=== PATIENT | male | born 1955 | race Caucasian/White ===

== ENCOUNTER 2024-11-07 07:13 | Outpatient (OUT) | payer OTHER, MEDICARE, SELFPAY ==
--- OUTSIDE RECORDS SUMMARY | 2024-11-07 07:21 | XMS_ITS | Clinical Summary ---
Author Organization [facility] Address [address] [place], [place] [id number] Care Team Providers Care Rope Rider Name Role Phone Unavailable Primary Care Provider Unavailabl e Allergies Active Allergy Reactions Criticality Noted Date Comments Penicillins Hives 03/15/2015 Medications buPROPion XL (WELLBUTRIN XL) 150 mg 24 hr tablet 02/11/2015 Active levothyroxine (SYNTHROID) 75 mcg tablet 02/25/2015 Active NITROSTAT 0.4 mg SL tablet 12/12/2014 Active ranitidine (ZANTAC) 150 mg tablet 02/11/2015 Active buPROPion XL (WELLBUTRIN XL) 300 mg 24 hr tablet 03/13/2015 Active Active Problems Problem Noted Date Diagnosed Date PVC's (premature ventricular contractions) 03/15 Family History Medical History Relation Comments COPD Father Diabetes Father HTN [Other] Father Heart Mother ID in her 70 , I CD Stroke Mother Diabetes Sister Diabetes Son Relation Status Comments Father Mother Sister Son Social History Tobacco Use Types Packs/Day Years Used Date Smoking Tobacco: Former Cigars Q uit: 06/01/2004 Alcohol Use Standard Drinks/Week Comments No 0 (1 standard drink = 0.6 oz pur e alcohol) Sex and Gender Information Value Date Recorded Sex Assigned at Not on file Legal Sex Male 8:03 AM EDT Gender Identity Not on file Sexual Orientation Not on file 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 Not on file Not on file Not on file [employer] Not on file Not on file Not on file Last Filed Vital Signs Vital Sign Reading Time Taken Comments Blood Pressure 140/80 03/15/2015 9:14 AM EDT Pulse 60 03/15/2015 9:14 AM EDT Temperature 36.2 C (97.1 F) 03/15/2015 9:14 AM EDT Respiratory Rate 16 03/15/2015 9:14 AM EDT Oxygen Saturation 95% 03/15/2015 9:14 AM EDT Inhaled Oxygen Concentration - - Weight 72.1 kg (159 lb) 03/15/2015 9:14 AM EDT Height 165.1 cm (5' 5 ) 03/15/2015 9:14 AM EDT Body Mass Index 26.46 03/15/2015 9:14 AM EDT Plan of Treatment Health Maintenance Due Date Last Done Comments Abdominal Aortic Aneurysm Screening 1957 Anxiety Screening 1975 Depression Screening 1975 Hepatitis C Screening 1975 DTaP,Tdap,Td Vaccine (1 - Tdap) [address] Colonography 2002 Cologuard (FIT-DNA) 2002 Colonoscopy 2002 Colorectal Cancer Screening 2002 Diabetes Screening 2002 Fecal Occult Blood 2002 Prostate Cancer Screening Discussion 2002 Sigmoidoscopy 2002 Pneumococcal Vaccine: 50+ (1 of 1 - PCV) 2007 Shingrix Vaccine (1 of 2) 2007 Covid-19 Vaccine (1 - season) 2024 Advance Directive Discussion 06/01/2024 Influenza Vaccine (Season Ended) 2025 RSV Vaccine (1 - 1-dose 75+ series) 2032
--- OUTSIDE RECORDS SUMMARY | 2024-11-07 07:21 | XMS_ITS | Clinical Summary ---
Author Organization [facility] Address [address] [place] [address] Phone Care Team Providers Care Hall Manager Name Role Phone Generic Provider, No Assigned Pcp MD Primary Car e Provider Unavailable Allergies No known active allergies Medications nitroglycerin (Nitrostat) 0.[address] 0.4 mg under the tongue every 5 minutes if needed. 09/21/2023 Active levothyroxine (Synthroid) 75 mcg tablet Take 75 mcg by mouth early in the morning.. 03/17/2024 Active buPROPion XL (Wellbutrin XL) 300 mg 24 hr tablet Take 1 tablet by mouth once daily. 03/23/2024 Active atorvastatin (Lipitor) 20 mg tablet Take 1 tablet by mouth once daily at bedtime. 03/23/2024 Active amLODIPine (Norvasc) 10 mg tablet Take 1 tablet by mouth once daily. 03/10/2024 Active diclofenac sodium (Voltaren) 1 % gel Apply topically. 09/21/2023 Active ibuprofen (IBU) 800 mg tablet Take 800 mg by mouth. 03/28/2024 Active propranolol LA (Inderal LA) 120 mg 24 hr capsule Take 120 mg by mouth once daily. Do not crush, chew, or split. Active ZOLMitriptan (Zomig) 5 mg tablet Take 5 mg by mouth 1 time if needed for migraine. May repeat in 2 hours if unresolved. Do not exceed 10 mg in 24 hours. Active Immunizations Immunization Administration Dates Next Due Tdap vaccine, age 7 year and older (BOOSTRIX, AD ACEL) 04/24/2024 Social History Tobacco Use Types Packs/Day Years Used Date Smoking Tobacco: Never Assessed Sex and Gender Information Value Date Recorded Sex Assigned at Not on file Legal Sex Male 2:32 AM EST Gender Identity Not on file Sexual Orientation Not on file Last Filed Vital Signs Vital Sign Reading Time Taken Comments Blood Pressure 152/81 04/24/2024 4:49 PM EST Pulse 42 04/24/2024 4:49 PM EST Temperature 37.1 C (98.7 F) 04/24/2024 4:49 PM EST Respiratory Rate 14 04/24/2024 4:49 PM EST Oxygen Saturation 98% 04/24/2024 4:49 PM EST Inhaled Oxygen Concentration - - Weight 77.1 kg (170 lb) 04/24/2024 4:49 PM EST Height 165.1 cm (5' 5 ) 04/24/2024 4:49 PM EST Body Mass Index 28.29 04/24/2024 4:49 PM EST Plan of Treatment Health Maintenance Due Date Last Done Comments CT Colonography 1957 Colonoscopy 1957 Colorectal Cancer Screening 1957 FIT-DNA (Cologuard) 1957 FIT 1957 Lipid Panel 1957 Medicare Annual Wellness Visit (AWV) 1957 Sigmoidoscopy 1957 TSH Level 1957 MMR Vaccines (1 of 1 - Standard series) 1958 Diabetes Screening 1975 Hepatitis C Screening 1975 RSV High Risk: (Elderly (60+) or Population) (1 - Risk 60-74 years 1-dose series) 2017 COVID-19 Vaccine ( season) 2024 03/23/2024, 03/18/2023, 03/05/2022, Additional history exists DTaP/Tdap/Td Vaccines (4 - Td or Tdap) 04/24/2034 04/24/2024, 09/19/2022, 05/06/2015 Pneumococcal Vaccine Completed 09/23/2021 Zoster Vaccines Completed 03/24/2022, 09/23/2021 Influenza Vaccine Completed 03/23/2024, , 03/24/2022 HIB Vaccines Aged Out No longer eligi ble based on patient's age to complete this topic HPV Vaccines Aged Out No longer eligi ble based on patient's age to complete this topic Hepatitis A Vaccines Aged Out No long er eligible based on patient's age to complete this topic Hepatitis B Vaccines Aged Out No long er eligible based on patient's age to complete this topic IPV Vaccines Aged Out No longer eligi ble based on patient's age to complete this topic Meningococcal Vaccine Aged Out No bubba jair eligible based on patient's age to complete this topic Rotavirus Vaccines Aged Out No longer eligible based on patient's age to complete this topic Insurance MEDICARE [facility] B [facility] Care Teams Hall Manager Relationship Specialty Start Date End Date Generic Provider, No Assigned Pcp, [place] [address] PCP - General Business Rules Developer 04/24/24
--- OUTSIDE RECORDS SUMMARY | 2024-11-07 07:21 | XMS_ITS | Clinical Summary ---
Author Organization [facility] Address [address] [place] [address] Care Team Providers Care Brick Molder Hand Name Role Phone Unavailable Primary Care Provider Unavailabl e Social History Tobacco Use Types Packs/Day Years Used Date Smoking Tobacco: Never Assessed Sex and Gender Information Value Date Recorded Sex Assigned at Not on file Legal Sex Male 11:55 PM EST Gender Identity Not on file Sexual Orientation Not on file Plan of Treatment Not on file Insurance [place] BCBS
--- OUTSIDE RECORDS SUMMARY | 2024-11-07 07:21 | XMS_ITS | Encounter Summary ---
Author Organization [facility] Address [address] [place] [address] Care Team Providers Care Hematology Oncology Consultant Name Role Phone Eileen Dawn INTERVENTIONAL TECHNOLOGIST Primary Care Provider + [phone] Reason for Visit * Reason Onset Date Comments Med Refill 11/01/2024 Encounter Details Date Type Department Care Team (Late st Contact Info) Description 11/01/2024 Refill [facility] [address] [place] [address] Lou Lyons MA Palpitations Social History Tobacco Use Types Packs/Day Years Used Date Smoking Tobacco: Former Cigarettes Smokeless Tobacco: Never Alcohol Use Standard Drinks/Week Comments Not Currently 0 (1 standard drink = 0.6 oz pur e alcohol) Sex and Gender Information Value Date Recorded Sex Assigned at Not on file Gender Identity Not on file Sexual Orientation Not on file documented as of this encounter Plan of Treatment Upcoming Encounters Date Type Department Care Team (Late st Contact Info) Description 12/06/2024 11:45 AM EDT Office Visit [facility] [address] [place] [address] Jarrett Frederick MD [address] [place] [phone] documented as of this encounter Visit Diagnoses Diagnosis Palpitations documented in this encounter Care Teams Hematology Oncology Consultant Relationship Specialty Start Date End Date Eileen Dawn NP [address] [place] [address] PCP - General Family Medicine 10/07/24 documented as of this encounter
--- OUTSIDE RECORDS SUMMARY | 2024-11-07 07:21 | XMS_ITS | Clinical Summary ---
Author Organization [facility] Address [address] [place] [address] Care Team Providers Care Electronic Resources Librarian Name Role Phone Lila Dawnca Ondina DEVINE Primary Care Provider + [phone] Allergies Active Allergy Reactions Criticality Noted Date Comments Penicillins Unknown 10/07/2024 Medications Medication Sig Dispensed Refills Start Date End Date Status amLODIPine (Norvasc) 5 mg tablet Take 5 mg by mouth in the morning. Active atorvastatin (Lipitor) 20 mg tablet Take 20 mg by mouth in the morning. Active buPROPion XL (Wellbutrin XL) 300 mg 24 hr tablet Take 300 mg by mouth in the morning. Do not crush, chew, or split. Active diclofenac (Voltaren) 1 % topical gel Apply topically Twice daily at 6am and 6pm. Active levothyroxine (Synthroid, Levoxyl) 75 mcg tablet Take 75 mcg by mouth before breakfast. Active nitroglycerin (Nitrostat) 0.[address] 0.4 mg under the tongue every 5 (five) minutes if needed for chest pain. Active ibuprofen 800 mg tablet Take 800 mg by mouth if needed in the morning, at noon, and at bedtime for mild pain (1-3 pain score). Active omeprazole OTC (PriLOSEC OTC) 20 mg EC tablet Take 20 mg by mouth before breakfast. Do not crush, chew, or split. Active metoprolol succinate XL (Toprol-XL) 50 mg 24 hr tabletIndications :Palpitations Take 1 tablet (50 mg) by mouth in the morning. Do not crush or chew. 90 tablet 3 11/01/2024 11/01/2025 Active metoprolol succinate XL (Toprol-XL) 50 mg 24 hr tablet Take 50 mg by mouth in the morning. Do not crush or chew. 11/01/2024 Discontinued (Reorder) Active Problems Problem Noted Date Diagnosed Date PVC (premature ventricular contraction) 10/10/19 25 Abnormal EKG 10/09/2024 Hypomagnesemia 10/04/2024 GERD (gastroesophageal reflux disease) Hypothyroidism 10/04/2024 Essential hypertension 10/04/2024 Dyslipidemia 10/04/2024 Anxiety 10/04/2024 Bradycardia 10/04/2024 Resolved Problems Problem Noted Date Diagnosed Date Resolved Date CAD (coronary artery disease) 10/04/2024 10/09/2024 Encounters Date Type Department Care Team Description 11/01/2024 Refill [facility] [address] [place] [address] Lou Lyons MA Palpitations 10/07/2024 2:00 PM EDT Office Visit [facility] [address] [place] [address] Melania Avalos MD Essential hypertension (Primary Dx); Bradycardia; Abnormal EKG; PVC (premature ventricular contraction); Dyslipidemia; Acquired hypothyroidism from Last 3 Months Family History Medical History Relation Name Comments Diabetes Father Heart attack Mother Relation Name Status Comments Brother Alive Father Mother Sister Alive Social History Tobacco Use Types Packs/Day Years Used Date Smoking Tobacco: Former Cigarettes Smokeless Tobacco: Never Tobacco Cessation:Counseling Given: Not Answered Alcohol Use Standard Drinks/Week Comments Not Currently 0 (1 standard drink = 0.6 oz pur e alcohol) Sex and Gender Information Value Date Recorded Sex Assigned at Not on file Gender Identity Not on file Sexual Orientation Not on file Last Filed Vital Signs Vital Sign Reading Time Taken Comments Blood Pressure 128/72 10/07/2024 2:08 PM EDT Pulse 45 10/07/2024 2:08 PM EDT Temperature - - Respiratory Rate - - Oxygen Saturation 96% 10/07/2024 2:08 PM EDT Inhaled Oxygen Concentration - - Weight 73 kg (161 lb) 10/07/2024 2:08 PM EDT Height 165.1 cm (5' 5 ) 10/07/2024 2:08 PM EDT Body Mass Index 26.79 10/07/2024 2:08 PM EDT Plan of Treatment Upcoming Encounters Date Type Department Care Team (Late st Contact Info) Description 12/06/2024 11:45 AM EDT Office Visit [facility] [address] [place] [address] Jarrett Frederick MD [address] [place] [address] Health Maintenance Due Date Last Done Comments CT Colonography 1957 Colonoscopy 1957 Colorectal Cancer Screening 1957 FIT-DNA 1957 FIT 1957 FOBT 1957 Medicare Annual Wellness (AWV) 1957 Sigmoidoscopy 1957 Depression Screening 1969 Zoster Vaccines (1 of 2) 2007 Fall Risk Screening 2022 Pneumococcal Vaccine: 65+ Years (1 of 1 - PCV) 2022 COVID-19 Vaccine ( season) 2024 03/23/2024, 03/18/2023, 03/05/2022, Additional history exists Adult Tetanus 04/24/2034 04/24/2024 Influenza Vaccine Completed 03/23/2024, 03/18/2023 HIB Vaccines Aged Out No longer eligi ble based on patient's age to complete this topic HPV Vaccines Aged Out No longer eligi ble based on patient's age to complete this topic IPV Vaccines Aged Out No longer eligi ble based on patient's age to complete this topic Meningococcal B Vaccine Aged Out No l onger eligible based on patient's age to complete this topic Meningococcal Vaccine Aged Out No bubba jair eligible based on patient's age to complete this topic Rotavirus Vaccines Aged Out No longer eligible based on patient's age to complete this topic Procedures Procedure Name Priority Date/Time Associated Diagnosis Comments ECG 12-LEAD Routine 10/07/2024 6:02 PM EDT PVC (premature ventricular contraction) ECG 12 LEAD UNIT PERFORMED Routine 10/07/2024 2:21 PM EDT Bradycardia from Last 3 Months Results * ECG 12 lead (10/07/2024 6:02 PM EDT) Narrative Melania Avalos MD - 10/07/2024 6:02 PM EDT normal sinus rhythm with frequent PVCs appear to be probably interpolated PVC, heart rate 66 bpm. Melania Avalos MD ECG ORDERABLES * ECG 12 lead unit performed (10/07/2024 2:21 PM EDT) Melania Avalos MD ECG ORDERABLES from Last 3 Months Care Teams Electronic Resources Librarian Relationship Specialty Start Date End Date Eileen Dawn NP [address] [place] [address] PCP - General Family Medicine 10/07/24
--- OUTSIDE RECORDS SUMMARY | 2024-11-07 07:21 | XMS_ITS | Referral Summary ---
Author Organization [facility] Address [address] [place] [address] Care Team Providers Care Consulting Systems Engineer Name Role Phone LópezEileen Ondina GIS ANALYST Primary Care Provider + [phone] Encounters Date Type Department Care Team Description 11/01/[address] [address] Lou Lyons MA Palpitations 10/07/2024 2:00 PM EDT Office Visit [facility] [address] [place] [address] Melania Avalos MD Essential hypertension (Primary Dx); Bradycardia; Abnormal EKG; PVC (premature ventricular contraction); Dyslipidemia; Acquired hypothyroidism from Last 3 Months Allergies Active Allergy Reactions Criticality Noted Date [...] Date CAD (coronary artery disease) 10/04/2024 10/09/2024 Social History Tobacco Use Types Packs/Day Years [...] Description 12/06/2024 11:45 AM EDT Office Visit [facility] at [facility] [address] [place] [address] Jarrett Frederick MD [address] [place] [phone] Procedures Procedure Name Priority Date/Time Associated Diagnosis [...] ORDERABLES from Last 3 Months Care Teams Consulting Systems Engineer Relationship Specialty Start Date End Date Eileen Dawn NP [address] [place] [address] PCP - General Family Medicine 10/07/24
--- NOTE | 2024-11-07 07:30 | CA_ITS ---
Patient Name: BRYANT CARO MR#: [id number] : 1955 Exam Date: 11/07/2024 Ordering Doctor: DR. ANGUS ERIC M.D. ECHOCARDIOGRAM REPORT PROCEDURE: CA ECHO DOPPLER COMPLETE INDICATIONS: Bradycardia, abnormal ECG, PVC, hypertension COMPARISON: None. DESCRIPTION: COMPLETE ECHOCARDIOGRAM Real-time transthoracic echocardiography with 2D, M-mode, spectral and color flow Doppler performed. QUALITY: Technical quality was good. LEFT VENTRICLE: Normal chamber size. Normal left ventricular wall thickness. LV EF: Global left ventricular systolic function is difficult to assess but appears lower normal limits; visually estimated ejection fraction is 50%. No significant wall motion abnormalities. DIASTOLIC: Unable to assess diastolic function. ATRIAL SEPTUM: Visually appears intact. LEFT ATRIUM: Mildly enlarged. RIGHT ATRIUM: Moderately enlarged. RIGHT VENTRICLE: Mildly enlarged. Normal right ventricular systolic function. TRICUSPID VALVE: Normal mobility and thickness. No stenosis with mild to moderate regurgitation. Doppler studies reveal mildly (35-45) elevated right sided pressures. RVSP 36 mmHg MITRAL VALVE: Normal mobility and thickness. No evidence of mitral valve stenosis. Mild mitral regurgitation. AORTIC VALVE: Normal trileaflet appearance. No visible sclerosis. Normal leaflet mobility. No evidence of aortic valve stenosis. No aortic regurgitation. AORTIC ROOT: Normal diameter and appearance. PULMONIC VALVE: Normal thickness and mobility. No stenosis. Trivial regurgitation. PERICARDIUM: No evidence of pericardial effusion. IVC: Collapses with inspiration. IVC is normal in size. CONCLUSION: 1. Global left ventricular systolic function is difficult to assess but appears lower normal limits; visually estimated ejection fraction is 50% 2. Right ventricle is enlarged with normal systolic function 3. Biatrial enlargement 4. Mild to moderate tricuspid regurgitation 5. Mildly elevated right ventricular systolic pressure; RVSP 36 mmHg 6. Mild mitral regurgitation Adult Echocardiography Procedure Report Left Ventricle LVEDD (3.7 - 5.6 cm): 5.26 cm LVESD (2.2 - 4.0 cm): 3.83 cm LVIVS thickness (0.6 - 1.2 cm): 0.88 cm LVPW thickness (0.5 - 1.0 cm): 0.70 cm e': 0.08 m/s E - e': 6.82 LVOT Max Gradient: 2.21 mm[Hg] LVOT Area (cm2): 0.74 m/s Peak Velocity (LVOT): 0.74 m/s Mean Velocity (LVOT): 0.49 m/s LVOT Diameter 2.21 cm Left Atrium LA Volume Index (2D A2C): 39.24 ml/m2 Left Atrium Systolic Dimension: 4.03 cm Mitral Valve MV E to A Ratio: 1 Mitral Valve A-Wave Peak Velocity: 0.52 m/s Mitral Valve E-Wave Peak Velocity: 0.52 m/s Right Ventricle Aorta AO Root Diam: 3.63 cm Aortic Valve AoV Area (Peak Elvis): 2.77 cm2, 2.77 cm2 AoV Area (VTI): 2.86 cm2, 2.86 cm2 Peak Velocity(Antegrade Flow): 1.03 m/s Peak Gradient(Antegrade Flow): 4.26 mm[Hg] Mean Velocity(Antegrade Flow): 0.67 m/s Mean Gradient(Antegrade Flow): 2.10 mm[Hg] Velocity Time Integral: 22.74 cm Tricuspid Valve Peak Velocity (Regurgitant Flow): 2.84 m/s, 2.42 m/s Pulmonic Valve Peak Gradient: 3.51 mm[Hg], 4.20 mm[Hg], 3.63 mm[Hg] Right Atrium Right Atrium Systolic Pressure: 63.47 ml, 63.47 ml Dictated by: Aisha Liu M.D. on 11/07/2024 at 17:22 Approved by: Aisha Liu M.D. on 11/07/2024 at 17:27
== END 2024-11-07 07:14 | disposition home or self-care (01) ==
LOC: CARD 07:19
PROVIDERS: Visit Provider Internal Medicine Cardiovascular Disease
DX: R00.1 Bradycardia, unspecified (principal); R94.31 Abnormal electrocardiogram [ECG] [EKG]; I49.3 Ventricular premature depolarization
CPT/HCPCS: 93306

== ENCOUNTER 2025-01-11 07:52 | Outpatient (OUT) | payer OTHER, MEDICARE, SELFPAY ==
--- OUTSIDE RECORDS SUMMARY | 2024-03-23 04:00 | XMS_ITS | Encounter Summary ---
Author Name [facility] [place] Organization [facility] [place] Address [address] [place] [id number] Care Team Providers Care Broke Worker Name Role Phone HORTENCIA BLANCO Primary Care Provider Unavailabl e Insurance Providers: All historical and current Section Date Range: From patient's date of to the date document was created. This section includes the names of all active insurance providers for the patient. Insurance Provider Type of Coverage Plan Name Start of Policy Coverage End of Policy Coverage Group Number Member ID Insurance Provider's Telephone Number Policy Turner's Name Patient's Relationship to Policy Turner MEDICARE (WNR) MEDICARE (M) PART A Jul 02, 2022 PART A [id number] XANDER CARO JR IN PATIENT MEDICARE (WNR) MEDICARE (M) PART B Jul 02, 2022 PART B [id number] XANDER CARO JR IN PATIENT Selected Encounter This section includes the information on record at [place] for the Encounter. Date/Time Encounter Type Encounter Description Reason Provider Source Mar 23, 2024 08:00 AM OFFICE O/P EST MOD 30 MIN PRIMARY CARE/MEDICINE ICD-10-CM E83.42 Hypomagnesemia SWATHI BLANCO E Encounter Template Text not used by [place] Assessments - Encounter Diagnoses This section includes the primary and secondary diagnoses documented for the Encounter. Date/Time Primary/Secondary Diagnosis Diagnosis Name Provider Source Mar 23, 2024 08:34 AM PRIMARY Hypomagnesemia SWATHI BLANCO Mar 23, 2024 08:34 AM SECONDARY Abnormal electrocardiogram [ECG] [EKG] SWATHI BLANCO Mar 23, 2024 08:34 AM SECONDARY [place] heart disease [place] coronary artery w/o ang pctrs SWATHI BLANCO [facility] Mar 23, 2024 08:34 AM SECONDARY Encounter for immunization MAICO LOUIE [facility] Mar 23, 2024 08:34 AM SECONDARY Essential (primary) hypertension SWATHI BLANCO [facility] Mar 23, 2024 08:34 AM SECONDARY Hyperlipidemia, unspecified STEVEN BLANCOZunilda Ondina BOWSER [facility] Mar 23, 2024 08:34 AM SECONDARY Hypothyroidism, unspecified STEVEN BLANCOZunilda Ondina [facility] Plan of Treatment: Future Appointments (+ 6 months) and Future Tests (+/- 45 days) The Plan of Treatment section includes future care activities for the [facility] [place] [facility] This section includes future appointments and future orders which are active, pending or scheduled. Future Appointments This section includes appointments that were scheduled to occur 6 months from the date of the Encounter, up to a maximum of 20 appointments. The data comes from all [facility] facilities. Appointment Date/Time Appointment Type Appointme nt Facility Name Mar 31, 2024 08:00 AM AMBULATORY - NONE [facility] May 18, 2024 08:30 AM AMBULATORY - NONE [facility] May 18, 2024 09:15 AM AMBULATORY - NONE [facility] Sep 05, 2024 09:45 AM AMBULATORY - NONE [facility] Sep 12, 2024 08:00 AM AMBULATORY - NONE [facility] Active, Pending, and Scheduled Orders This section includes a listing of several types of active, pending, and scheduled orders, including clinic medications orders, diagnostic test orders, procedure orders and consult orders; where the start date of the order is 45 days before the date of the Encounter or 45 days after the date of theEncounter. The data comes from all [facility]. Test Date/Time Test Type Test Details Facility Name Mar 22, 2024 12:00 AM Laboratory - Chemi nu Order URINALYSIS URINE SP [facility] Lab Results: +/- 30 days of the encounter This section includes the Chemistry and Hematology Lab [facility] with [facility]. Radiology Reports and Pathology Reports are provided separately, in subsequent sections. Lab Results This section contains the Chemistry/Hematology Results that were resulted 30 days before or 30 daysafter the date of the Encounter. Date/Time Source Result Type Result - Unit Interpretation Reference Range Specimen Type Comment Mar 16, 2024 07:43 AM [facility] LIPID PROFILE PLASMA Specimen Type: PLASMA Comment: DLDLREF RANGE: NEAR OR ABOVE OPTIMAL: 100-129 mg/dL BORDERLINE DLDLHIGH: 130-159 mg/dL HIGH: 160-189 mg/dL VERY HIGH: >=190 TRIG REF RANGE: BORDERLINE HIGH: 150-199 mg/dL HIGH: 200-499 mg/dL TRIG VERY HIGH: >=500 mg/dL CREA eGFR was calculated using the CKD-EPI 2020 equation. CHOL REF RANGE: BORDERLINE HIGH: 200-239 mg/dL HIGH: >=240 mg/dL Ordering Provider: HORTENCIA BLANCO Report Released Date/Time: Sep 21, 2023 01:23 PM Reporting Lab: [address] [phone] Performing Lab: [address] [address] CHOLESTEROL 115 mg/dL <199 LDL CHOLESTEROL 73 mg/dL <99 HDL CHOLESTEROL 38 mg/dL L >60 TRIGLYCERIDE 48 mg/dL <149 Mar 16, 2024 07:43 AM [facility] COMPREHENSIVE METABOLIC PANEL PLASMA S pecimen Type: PLASMA Comment: DLDLREF RANGE: NEAR OR ABOVE OPTIMAL: 100-129 mg/dL BORDERLINE DLDLHIGH: 130-159 mg/dL HIGH: 160-189 mg/dL VERY HIGH: >=190 TRIG REF RANGE: BORDERLINE HIGH: 150-199 mg/dL HIGH: 200-499 mg/dL TRIG VERY HIGH: >=500 mg/dL CREA eGFR was calculated using the CKD-EPI 2020 equation. CHOL REF RANGE: BORDERLINE HIGH: 200-239 mg/dL HIGH: >=240 mg/dL Ordering Provider: HORTENCIA BLANCO Report Released Date/Time: Sep 21, 2023 01:23 PM Reporting Lab: [address] [phone] Performing Lab: [address] [phone] ALBUMIN 4.1 g/dL 3.2-4.6 ALKALINE PHOSPHATASE 73 U/L 40-150 ALT/SGPT 47 U/L <55 AST/SGOT 27 U/L 5-34 BUN 17 mg/dL 8.4-25.7 CALCIUM 8.9 mg/dL 8.8-10.0 CREATININE 1.2 mg/dL 0.72-1.25 CO2 23 mmol/L 23-31 GLUCOSE 117 mg/dL H 82-115 PROTEIN, TOTAL 6.3 g/dL L 6.4-8.3 SODIUM 138 mmol/L 136-145 CHLORIDE 104 mmol/L 98-107 BILIRUBIN, TOTAL 0.7 mg/dL 0.2-1.2 POTASSIUM 4.7 mmol/L 3.5-5.1 ANION GAP 15.7 mmol/L 10-20 EGFR (CALCULATED) 67.0 mL/min Mar 16, 2024 07:43 AM [facility] HEMOGLOBIN A1C BLOOD Specimen Type: B LOOD Comment: Values obtained from A1C measurements can vary. For typical A1C assays, a reported value of 7.0 could actually be between 6.72 and 7.28 if measured by a reference method. A reported value of 9.0 could actually be between 8.73 and 9.27. Ref: http://www.ngsp.org/CAPdata.asp Ordering Provider: HORTENCIA BLANCO Report Released Date/Time: Sep 21, 2023 01:23 PM Reporting Lab: [address] [phone] Performing Lab: [address] [phone] HEMOGLOBIN A1C 6.1 H 3.6-5.7 Mar 16, 2024 07:43 AM [facility] PROSTATE SPECIFIC ANTIGEN SERUM Speci men Type: SERUM No comment entered. Ordering Provider: HORTENCIA BLANCO Report Released Date/Time: Sep 21, 2023 01:23 PM Reporting Lab: [address] [phone] Performing Lab: [place] [phone] PROSTATE SPECIFIC ANTIGEN 1.35 ng/mL <4. 00 Mar 16, 2024 07:43 AM [facility] CBC BLOOD Specimen Type: BLOOD No comment entered. Ordering Provider: HORTENCIA BLACNO Report Released Date/Time: Sep 21, 2023 01:23 PM Reporting Lab: [address] [address] Performing Lab: [address] [phone] WBC COUNT 6.8 10*3/uL 3.6-11.0 RBC COUNT 5.15 10*6/uL 4.47-5.83 HGB 15.7 g/dL 13.6-17.4 HCT 47.5 40.0-51.0 MCV 92.1 fL 80.0-96.0 MCH 30.5 pg 27.0-31.0 MCHC 33.1 g/dL 31.5-36.5 PLT 246 10*3/uL 150-400 LYMPHS % 21.3 21.0-51.0 MONOCYTES % 11.3 H 4.0-8.0 NUCLEATED RBC/100WBC 0.1 /100{WBCs} RDW 13.7 11.2-15.8 NEUTROPHIL % 63.7 54.0-78.0 EOSINOPHIL % 2.9 0.0-3.0 BASOPHIL % 0.8 0.0-3.0 ABSOLUTE LYMPHOCYTE COUNT 1.5 10*3/uL 0. 8-5.0 ABSOLUTE NEUTROPHIL COUNT 4.3 10*3/uL 1. 9-8.6 ABSOLUTE BASOPHIL COUNT 0.1 10*3/uL 0.0- 0.3 ABSOLUTE MONOCYTE COUNT 0.8 10*3/uL 0.1- 0.9 ABSOLUTE EOSINOPHIL COUNT 0.2 10*3/uL 0. 0-0.3 MPV 8.6 fL 7.4-11.4 Mar 16, 2024 07:43 AM [facility] FREE T4 PLASMA Specimen Type: PLASMA Comment: DLDLREF RANGE: NEAR OR ABOVE OPTIMAL: 100-129 mg/dL BORDERLINE DLDLHIGH: 130-159 mg/dL HIGH: 160-189 mg/dL VERY HIGH: >=190 TRIG REF RANGE: BORDERLINE HIGH: 150-199 mg/dL HIGH: 200-499 mg/dL TRIG VERY HIGH: >=500 mg/dL CREA eGFR was calculated using the CKD-EPI 2020 equation. CHOL REF RANGE: BORDERLINE HIGH: 200-239 mg/dL HIGH: >=240 mg/dL Ordering Provider: HORTENCIA BLANCO Report Released Date/Time: Sep 21, 2023 01:23 PM Reporting Lab: [address] [address] Performing Lab: [address] [address] FREE T4 1.15 ng/dL 0.7-1.48 Mar 16, 2024 07:43 AM [facility] TSH PLASMA Specimen Type: PLASMA Comment: DLDLREF RANGE: NEAR OR ABOVE OPTIMAL: 100-129 mg/dL BORDERLINE DLDLHIGH: 130-159 mg/dL HIGH: 160-189 mg/dL VERY HIGH: >=190 TRIG REF RANGE: BORDERLINE HIGH: 150-199 mg/dL HIGH: 200-499 mg/dL TRIG VERY HIGH: >=500 mg/dL CREA eGFR was calculated using the CKD-EPI 2020 equation. CHOL REF RANGE: BORDERLINE HIGH: 200-239 mg/dL HIGH: >=240 mg/dL Ordering Provider: HORTENCIA BLANCO Report Released Date/Time: Sep 21, 2023 01:23 PM Reporting Lab: [address] [phone] Performing Lab: [address] [phone] TSH 0.888 u[IU]/mL 0.360-4.500 Immunizations: All administered on the encounter date This section contains immunizations associated to the Encounter. Immunization Series Date Issued Administered By Site Reaction Lot Number CVX Code Drug Timing Adjuster Comment(s) Source COVID-19 (PFIZER), MRNA, LNP-S, PF, ENE-SUCROSE, 30 MCG/0.3 ML (AGES 12+ YEARS) Mar 23, 2024 MAICO LOUIE LEFT DELTO ID [id number] [employer] ADMINISTERE D AT [facility] INFLUENZA, HIGH-DOSE, TRIVALENT, PF Mar 23, 2024 MAICO LOUIE RIGHT DELTO ID [id number] 135 [employer] ADMINISTERE D AT [facility] Social History: Smoking Status (Most current) and Tobacco Use (All prior to encounter date) This section includes the most current, and the historical, smoking and tobacco- related health factors from the [place] facility where the Encounter took place. Current Smoking Status This section includes the most current smoking, or tobacco-related health factor, from the [place] facility where the Encounter took place. Date/Time Current Smoking Status Comment Marguerite pablo Sep 21, 2023 09:30 AM [place]-TOBACCO QUIT 15 YRS OR MORE [facility] Tobacco Use History This section includes a history of the smoking, or tobacco-related health factors, that were collected on or before the date of the Encounter. The data comes from the [place] facility where the Encounter took place. Date/Time Smoking Status/Tobacco Use Comment F acility Sep 21, 2023 09:30 AM [facility]-TOBACCO QUIT 15 YRS OR MORE [facility] Sep 19, 2022 10:00 AM VA-TOBACCO FORMER USER [facility] Sep 19, 2022 10:00 AM VA-TOBACCO QUIT 15 YRS OR MORE [facility] Sep 23, 2021 10:30 AM VA-TOBACCO FORMER USER [facility] Sep 23, 2021 10:30 AM VA-TOBACCO QUIT 15 YRS OR MORE [facility] Sep 19, 2020 10:00 AM VA-TOBACCO FORMER USER [facility] Sep 19, 2020 10:00 AM VA-TOBACCO QUIT 15 YRS OR MORE [facility] Encounter Notes: All associated encounter notes This section contains the clinical notes associated to the Encounter. Date/Time Encounter Note(s) Provider Source Mar 23, 2024 08:08 AM NURSING MEDICATION MGT NOTE: LOCAL TITLE: MEDICATION ADMINISTRATION NOTE (T) STANDARD TITLE: NURSING MEDICATION MGT NOTE DATE OF NOTE: MAR 23, 2024@08:08 ENTRY DATE: MAR 23, 2024@08:08:09 AUTHOR: AMPARO LOUIE EXP COSIGNER: URGENCY: STATUS: COMPLETED Influenza Vaccine Influenza, High-Dose, Trivalent, Preservative Free (Fluzone-Syringe) Administered: INFLUENZA, HIGH-DOSE, TRIVALENT, PF Date Administered: Mar 23, 2024 08:00 Timing Adjuster: [employer] Lot: [id number] Exp Date: Nov 28, 2024 [facility]: [id number] Admin Route/Site: INTRAMUSCULAR/RIGHT DELTOID Dosage: 0.5mL Vaccine Information Statement(s): INFLUENZA(FLU) VACC(INACTIVATED OR RECOMBINANT)VIS Jan 04, 2021 (GEORGIAN) Order By: Policy Administered By: Amparo Louie The Influenza Vaccine Information Statement (VIS) was reviewed with the patient/caregiver which lists the benefits and risks of the vaccine and the risks of not receiving the Influenza vaccine. The patient/caregiver denied any prior severe reaction to this vaccine or its components or a severe allergic reaction, such as anaphylaxis, to any vaccine or any injectable therapy. The patient/caregiver gave verbal consent to receive the vaccine. COVID-19 Vaccine Pfizer Monovalent (Comirnaty) Administered: COVID-19 (PFIZER), MRNA, LNP-S, PF, ENE-SUCROSE, 30 MCG/0.3 ML (AGES 12+ YEARS) Date Administered: Mar 23, 2024 08:00 Timing Adjuster: [employer] Lot: [id number] Exp Date: Aug 30, 2024 Admin Route/Site: INTRAMUSCULAR/LEFT DELTOID Dosage: 0.3mL Vaccine Information Statement(s): COVID-19 MRNA VACCINE (12+ YRS) VACCINE VIS Mar 19, 2023 (GEORGIAN) Order By: Policy Administered By: Amparo Louie Vaccine administered without complications. /es/ AMPARO LOUIE LICENSED PRACTICAL NURSE Signed: 03/23/2024 08:09 AMPARO LOUIE [facility] Mar 23, 2024 08:01 AM INTERNAL MEDICINE OUTPATIENT NOTE: LOCAL TITLE: PRIMARY CARE OUTPATIENT NOTE (T) STANDARD TITLE: INTERNAL MEDICINE OUTPATIENT NOTE DATE OF NOTE: MAR 23, 2024@08:01 ENTRY DATE: MAR 23, 2024@08:01:25 AUTHOR: HORTENCIA BLANCO EXP COSIGNER: URGENCY: STATUS: COMPLETED In-person Note 68yo [place] Reason for Visit: Here for follow up visit. He was to have dental procedure on 03/01 and the EKG showed quadrageminy so it was cancelled. He was told by the nurse to go the ER with any dizziness or or lightheaded ness. On 03/17 he felt light headed and dizzy so he went to the [facility] ER where he had a low Magneium (2.1) and frequent PVCs. He was started on Magnesium and told to follow up with cardiology. He followed up with cardiology who would like an event monitor, echo and carotid studies. 7 Active Problems PROBLEM LAST MOD PROVIDER GERD - Gastro-esophageal reflux disease 07/17/2023 HORTENCIA BLANCO Pain radiating to right shoulder 03/18/2023 HORTENCIA BLANCO CAD - Coronary artery disease 03/27/2021 HORTENCIA BLANCO Hypothyroidism 09/19/2020 VLAD JENSEN Essential hypertension 09/19/2020 VLAD JENSEN Dyslipidemia 09/19/2020 VLAD JENSEN Anxiety 09/19/2020 VLAD JENSEN REVIEW OF SYSTEMS: (denies the following unless indicated otherwise): mood concerns headache fatigue/weight loss dysphagia/hoarseness chest pain dyspnea abdominal pain difficult or bloody elimination PATIENT ALLERGIES DETAILED ALLERGIES/ADVERSE REACTIONS Type: DRUG Date/Time Reactant Severity Reaction 09/19/2020 10:02 PENICILLIN ANAPHYLAXIS AMRS - MEDS (REC SUCCINCT) Active and Recently Inpatient, Outpatient and Clinic Medications (including Supplies): Active Outpatient Medications Status ========= 1) AMLODIPINE BESYLATE 10MG TAB TAKE ONE TABLET BY MOUTH ACTIVE EVERY DAY 2) ATORVASTATIN CALCIUM 20MG TAB TAKE ONE TABLET BY ACTIVE (S) MOUTH AT BEDTIME 3) DICLOFENAC NA 1% TOP GEL APPLY 2GM MEASURED ON ACTIVE DOSING CARD EXTERNALLY TWICE A DAY (GENTLY MASSAGE INTO SKIN) *FLAMMABLE: KEEP AWAY FROM HEAT AND FLAMES* RIGHT SHOULDER 4) NITROGLYCERIN 0.4MG SL TAB DISSOLVE ONE TABLET UNDER ACTIVE THE TONGUE NEEDED FOR CHEST PAIN; IF CHEST PAIN IS NOT IMPROVED 5 MINUTES AFTER TAKING 1 TABLET, CALL 911 STORE IN ORIGINAL CONTAINER 5) OMEPRAZOLE 20MG EC CAP TAKE ONE CAPSULE BY MOUTH ACTIVE EVERY MORNING, ON AN EMPTY STOMACH FOR INDIGESTION Inactive Outpatient Medications Status ========= 1) BUPROPION HCL 300MG 24HR SA TAB TAKE ONE TABLET BY MOUTH EVERY DAY 2) IBUPROFEN 800MG TAB TAKE ONE TABLET BY MOUTH THREE TIMES A DAY NEEDED FOR PAIN (TAKE WITH FOOD) 3) LEVOTHYROXINE NA (SYNTHROID) 75MCG TAB TAKE ONE TABLET BY MOUTH EVERY MORNING, ON AN EMPTY STOMACH 30-60 MINUTES BEFORE BREAKFAST Active Non-VA Medications Status ========= 1) Non-VA NITROGLYCERIN 0.4MG SL TAB 0.4MG UNDER THE ACTIVE TONGUE NEEDED 9 Total Medications Report Released Date/Time: Mar 16, 2024@19:26 Provider: HORTENCIA BLANCO Specimen: SERUM. [facility] [id number] Specimen Collection Date: Mar 16, 2024@07:43 Test name Result units Ref. range Site Code PROSTATE SPECIFIC ANTIGEN 1.35 ng/mL Ref: <=4.00 [541] Report Released Date/Time: Mar 16, 2024@18:16 Provider: HORTENCIA BLANCO Specimen: BLOOD. [facility] [id number] Specimen Collection Date: Mar 16, 2024@07:43 Test name Result units Ref. range Site Code HEMOGLOBIN A1C 6.1 H % 3.6 - 5.7 [541] Eval: Values obtained from A1C measurements can vary. For typical A1C assays, a Eval: reported value of 7.0 could actually be between 6.72 and 7.28 if measured Eval: by a reference method. A reported value of 9.0 could actually be between Eval: 8.73 and 9.27. Ref: https://ngsp.org/CAPdata.asp WBC COUNT 6.8 K/cmm 3.6 - 11.0 [541] RBC COUNT 5.15 M/cmm 4.47 - 5.83 [541] HGB 15.7 g/dL 13.6 - 17.4 [541] HCT 47.5 % 40.0 - 51.0 [541] MCV 92.1 fL 80.0 - 96.0 [541] MCH 30.5 pg 27.0 - 31.0 [541] MCHC 33.1 g/dL 31.5 - 36.5 [541] RDW 13.7 % 11.2 - 15.8 [541] PLT 246 K/cmm 150 - 400 [541] MPV 8.6 fL 7.4 - 11.4 [541] NEUTROPHIL % 63.7 % 54.0 - 78.0 [541] LYMPHS % 21.3 % 21.0 - 51.0 [541] MONOCYTES % 11.3 H % 4.0 - 8.0 [541] EOSINOPHIL % 2.9 % 0.0 - 3.0 [541] BASOPHIL % 0.8 % 0.0 - 3.0 [541] ABSOLUTE NEUTROPHIL COUNT 4.3 K/cmm 1.9 - 8.6 [541] ABSOLUTE LYMPHOCYTE COUNT 1.5 K/cmm 0.8 - 5.0 [541] ABSOLUTE MONOCYTE COUNT 0.8 K/cmm 0.1 - 0.9 [541] ABSOLUTE EOSINOPHIL COUNT 0.2 K/cmm 0.0 - 0.3 [541] ABSOLUTE BASOPHIL COUNT 0.1 K/cmm 0.0 - 0.3 [541] NUCLEATED RBC/100WBC 0.1 /100 WBC None Established - None Established [541] Comment: Values obtained from A1C measurements can vary. For typical A1C assays, a reported value of 7.0 could actually be between 6.72 and 7.28 if measured by a reference method. A reported value of 9.0 could actually be between 8.73 and 9.27. Ref: http://www.ngsp.org/CAPdata.asp Report Released Date/Time: Mar 16, 2024@19:08 Provider: HORTENCIA BLANCO Specimen: PLASMA. [facility] [id number] Specimen Collection Date: Mar 16, 2024@07:43 Test name Result units Ref. range Site Code GLUCOSE 117 H mg/dL 82 - 115 [541] Eval: REFERENCE RANGE CHANGED FOR GLU ON 12.09.23 SODIUM 138 mmol/L 136 - 145 [541] Eval: REFERENCE RANGE CHANGED ON 12.09.23 POTASSIUM 4.7 mmol/L 3.5 - 5.1 [541] CHLORIDE 104 mmol/L 98 - 107 [541] CO2 23 mmol/L 23 - 31 [541] BUN 17 mg/dL 8.4 - 25.7 [541] CREATININE 1.2 mg/dL 0.72 - 1.25 [541] Eval: REFERENCE RANGES CHANGED FOR CREAT ON 02.28.24 CALCIUM 8.9 mg/dL 8.8 - 10.0 [541] EGFR (CALCULATED) 67.0 mL/min [541] Eval: eGFR results >60 are imprecise. Many variables affect the calculated Eval: result. Interpretation of eGFR results >60 must be monitored Eval: over time. ANION GAP 15.7 mmol/L 10 - 20 [541] AST/SGOT 27 U/L 5 - 34 [541] Eval: REFERENCE RANGE CHANGED FOR AST ON 12.25.23 ALT/SGPT 47 U/L Ref: <=55 [541] Eval: REFERENCE RANGE CHANGED FOR ALT ON 12.25.23 ALKALINE PHOSPHATASE 73 U/L 40 - 150 [541] BILIRUBIN, TOTAL 0.7 mg/dL 0.2 - 1.2 [541] Eval: REFERENCE RANGE CHANGED FOR TBIL ON 12.09.23 PROTEIN, TOTAL 6.3 L g/dL 6.4 - 8.3 [541] ALBUMIN 4.1 g/dL 3.2 - 4.6 [541] CHOLESTEROL 115 mg/dL Ref: <=199 [541] LDL CHOLESTEROL 73 mg/dL Ref: <=99 [541] HDL CHOLESTEROL 38 L mg/dL Ref: >=60 [541] TRIGLYCERIDE 48 mg/dL Ref: <=149 [541] FREE T4 1.15 ng/dL 0.7 - 1.48 [541] Eval: REFERENCE RANGE CHANGED FOR FT4 ON 12.09.23 TSH 0.888 uIU/mL 0.360 - 4.500 [541] Comment: DLDLREF RANGE: NEAR OR ABOVE OPTIMAL: 100-129 mg/dL BORDERLINE DLDLHIGH: 130-159 mg/dL HIGH: 160-189 mg/dL VERY HIGH: >=190 TRIG REF RANGE: BORDERLINE HIGH: 150-199 mg/dL HIGH: 200-499 mg/dL TRIG VERY HIGH: >=500 mg/dL CREA eGFR was calculated using the CKD-EPI 2020 equation. CHOL REF RANGE: BORDERLINE HIGH: 200-239 mg/dL HIGH: >=240 mg/dL PHYSICAL EXAM: Vital Signs: T: 97.5 F [36.4 C] (03/23/2024 07:55) P: 56 (03/23/2024 07:55) R: 16 (03/23/2024 07:55) BP: 138/80 (03/23/2024 07:55) Pain: 0 (03/23/2024 07:55) Height: 65 in [165.1 cm] (03/27/2021 10:11) Weight: 163.5 lb [74.16 kg] (03/23/2024 07:55) Pulse Ox: 97% (03/23/2024 07:55) General: appears well Head, Ears, Eyes, Nose, and Throat: Neck: no bruit Chest/Lungs: CTA Cardiovascular: irregular heart tones, A=R Gastrointestinal: Extremities: no edema ASSESSMENT/PLAN: reviewed labs with patient reviewed recent ER record, states has been feeling better since starting on Magnesium, has ECHO and carotid studies scheduled tomorrow. HTN- BP readings have been improved, await cardiology appt to see if medications changed anxiety- stable with bupropion hypothyroid- stable with current synthroid dose HEALTH MAINTENANCE/CLINICAL REMINDERS: MEDICATION RECONCILIATION Medication Reconciliation report reviewed and discussed with patient/caregiver. VA prescription medications, non-VA prescription medications, OTC and herbal medications reviewed: Patient/caregiver verifies that the list is complete and accurate and voices understanding. Patient/caregiver in possession of printed medication list. FOLLOW-UP: 6 months with labs I am the Staff Provider. TOTAL TIME SPENT: Spent 30 minutes in care of this patient today including review of records, exam, and placing orders. /turner/ HORTENCIA BLANCO NURSE PRACTITIONER Signed: 03/23/2024 08:34 HORTENCIA BLANCO [facility] Mar 23, 2024 07:42 AM PRIMARY CARE NURSI GERBER NOTE: LOCAL TITLE: OUTPATIENT NURSING INTAKE NOTE (T) STANDARD TITLE: PRIMARY CARE NURSING NOTE DATE OF NOTE: MAR 23, 2024@07:42 ENTRY DATE: MAR 23, 2024@07:42:25 AUTHOR: AMPARO LOUIE COSIGNER: URGENCY: STATUS: COMPLETED Hemoglobin A1C Results: Collection DT Specimen Test Name Result Units Ref Range 03/16/2024 07:43 BLOOD HEMOGLOBIN A1C 6.1 H % 3.6 - 5.7 Comment: Values obtained from A1C measurements can vary. For typical A1C Comment: assays, a reported value of 7.0 could actually be between 6.72 and Comment: 7.28 if measured by a reference method. A reported value of 9.0 Comment: could actually be between 8.73 and 9.27. Ref: Comment: http://www.ngsp.org/CAPdata.asp 09/14/2023 08:58 BLOOD HEMOGLOBIN A1C 5.8 H % 3.6 - 5.7 Comment: Values obtained from A1C measurements can vary. For typical A1C Comment: assays, a reported value of 7.0 could actually be between 6.72 and Comment: 7.28 if measured by a reference method. A reported value of 9.0 Comment: could actually be between 8.73 and 9.27. Ref: Comment: http://www.ngsp.org/CAPdata.asp 03/11/2023 09:30 BLOOD HEMOGLOBIN A1C 5.6 % 3.6 - 5.7 Comment: Values obtained from A1C measurements can vary. For typical A1C Comment: assays, a reported value of 7.0 could actually be between 6.72 and Comment: 7.28 if measured by a reference method. A reported value of 9.0 Comment: could actually be between 8.73 and 9.27. Ref: Comment: http://www.ngsp.org/CAPdata.asp Review Allergies Allergies reviewed and updated per protocol. ALLERGIES/ADVERSE REACTIONS Type: DRUG Date/Time Reactant Severity Reaction 09/19/2020 10:02 PENICILLIN ANAPHYLAXIS MEDICATION LIST REVIEW REPORT Patient's Active Medications were reviewed at this visit. Patient states no change in documented OTC/Herbals at this visit. 1. Has the patient been feeling sad or distressed? No 2. Has the patient been having personal or family problems? No 3. Has the patient been experiencing worry and/or stress? No 4. Has the patient been having problems with drugs and/or alcohol? No 5. [place] Crisis [facility] pocket card was provided to patient. No/patient declined [facility] not documented this visit. Clinical Reminders Activity Advance Directive Education Screen: Patient received information regarding Advance Directives: No - Patient declined information at this time. COVID-19 Immunization: Homelessness/Food Insecurity Screen: In the past 2 months, have you been living in stable housing that you own, rent, or stay in as part of a household? Yes - Living in stable housing. Are you worried or concerned that in the next 2 months you may NOT have stable housing that you own, rent, or stay in as part of a household? No - Not worried about housing near future The reports the following: Within the past 12 months, you worried whether your food would run out before you got money to buy more. Never true Within the past 12 months, the food you bought just didn't last and you didn't have money to get more. Never true Patient Education Documentation: LEARNING NEEDS ASSESSMENT: The patient/family/significant other reports no changes in learning needs. /es/ AMPARO LOUIE LICENSED PRACTICAL NURSE Signed: 03/23/2024 08:07 AMPARO LOUIE [facility]
--- OUTSIDE RECORDS SUMMARY | 2024-03-25 15:20 | XMS_ITS | Encounter Summary ---
Author Name [facility] [place] Organization [facility] [place] [place] Address [address] [place] [id number] Care Team Providers Care Hide Stretcher Hand Name Role Phone HORTENCIA BLANCO Primary Care [...] PART A Jul 02, 2022 PART A [id number] XANDER CARO JR IN PATIENT MEDICARE (WNR) MEDICARE (M) PART B Jul 02, 2022 PART B [id number] [id number] XANDER CARO JR IN PATIENT Selected Encounter This section includes the information on record at [place] for the Encounter. Date/Time Encounter Type Encounter Description Reason Pro vider Source Mar 25, 2024 07:20 PM Outpatient Encounter ADMIN PAT ACTIVTIES (MASNONCT) IHE Encounter Template Text not used by [place] Plan of Treatment: Future Appointments (+ 6 months) and Future Tests (+/- 45 days) The Plan of Treatment section includes future care activities for the patient from all [place] treatmentfacilities. This section includes future appointments and future orders which are active, pending or scheduled. Future Appointments This section includes appointments that were scheduled to occur 6 months from the date of the Encounter, up to a maximum of 20 appointments. The data comes from all [place] treatment facilities. Appointment Date/Time Appointment Type Appointme nt Facility Name Mar 31, 2024 08:00 AM AMBULATORY - NONE [facility] May 18, 2024 08:30 AM AMBULATORY - NONE [facility] May 18, 2024 09:15 AM AMBULATORY - NONE [facility] Sep 05, 2024 09:45 AM AMBULATORY - NONE [facility] Sep 12, 2024 08:00 AM AMBULATORY - NONE [facility] Active, Pending, and Scheduled Orders This section includes a listing of several types of active, pending, and scheduled orders, including clinic medications orders, diagnostic test orders, procedure orders and consult orders; where the start date of the order is 45 days before the date of the Encounter or 45 days after the date of theEncounter. The data comes from all [place] treatment facilities. Test Date/Time Test Type Test Details Facility Name Mar 22, 2024 12:00 AM Laboratory - Chemi stry Order URINALYSIS URINE SP ONCE [facility] Lab Results: +/- 30 days of the [...] Type Comment Mar 16, 2024 07:43 AM [facility] LIPID PROFILE PLASMA Specimen Type: PLASMA Comment: [...] Sep 21, 2023 01:23 PM Reporting Lab: [facility] [id number] [facility] [phone] Performing Lab: [facility] [id number] [place] [id number] CHOLESTEROL 115 mg/dL <199 LDL CHOLESTEROL 73 mg/dL <99 HDL CHOLESTEROL 38 mg/dL L >60 TRIGLYCERIDE 48 mg/dL <149 Mar 16, 2024 07:43 AM [facility] COMPREHENSIVE METABOLIC PANEL PLASMA S pecimen Type: [...] Sep 21, 2023 01:23 PM Reporting Lab: [address] [address] Performing Lab: [address] [address] ALBUMIN 4.1 g/dL 3.2-4.6 ALKALINE PHOSPHATASE 73 [...] 67.0 mL/min Mar 16, 2024 07:43 AM [facility] HEMOGLOBIN A1C BLOOD Specimen Type: B LOOD [...] Sep 21, 2023 01:23 PM Reporting Lab: [address] [address] Performing Lab: [address] [address] HEMOGLOBIN A1C 6.1 H 3.6-5.7 Mar 16, 2024 07:43 AM [facility] PROSTATE SPECIFIC ANTIGEN SERUM Speci men Type: SERUM No comment entered. Ordering Provider: HORTENCIA BLANCO Report Released Date/Time: Sep 21, 2023 01:23 PM Reporting Lab: [address] [address] Performing Lab: [place] [phone] PROSTATE SPECIFIC ANTIGEN 1.35 ng/mL <4. 00 Mar 16, 2024 07:43 AM [facility] CBC BLOOD Specimen Type: BLOOD No comment entered. Ordering Provider: HORTENCIA BLANCO Report Released Date/Time: Sep 21, 2023 01:23 PM Reporting Lab: [address] [address] Performing Lab: [place] [phone] WBC COUNT 6.8 10*3/uL 3.6-11.0 RBC COUNT [...] fL 7.4-11.4 Mar 16, 2024 07:43 AM [facility] FREE T4 PLASMA Specimen Type: PLASMA Comment: [...] Sep 21, 2023 01:23 PM Reporting Lab: [place] [phone] Performing Lab: [place] [id number] FREE T4 1.15 ng/dL 0.7-1.48 Mar 16, 2024 07:43 AM [facility] TSH PLASMA Specimen Type: PLASMA Comment: DLDLREF [...] Sep 21, 2023 01:23 PM Reporting Lab: [place] [phone] Performing Lab: [place] [id number] TSH 0.888 u[IU]/mL 0.360-4.500 Encounter Notes: All associated encounter notes This section contains the clinical notes associated to the Encounter. Date/Time Encounter Note(s) Provider Source Mar 17, 2024 07:20 PM NONVA NOTE: LOCAL TITLE: [facility] SELF PRESENTING CARE COORD PLAN STANDARD TITLE: NONVA NOTE DATE OF NOTE: MAR 17, 2024@19:20 ENTRY DATE: MAR 25, 2024@19:20:58 AUTHOR: SUNNI ALEXANDER EXP COSIGNER: URGENCY: STATUS: COMPLETED [facility] PRESENTING CARE COORD PLAN NOTE Has ADDENDA Emergency Notification Intake Date Presenting to the Facility: Mar Method of Contact: [facility] Name: Hospital: [facility] Address: [address] [place] [address] City: [place] State: [place] Zip Code: [address] Community Facility Point of Contact: Name: Phone: Chief complaint: PVC,DIZZINESS Primary Diagnosis: Disposition Discharged Date of discharge: Mar Discharge to home /turner/ SUNNI ALEXANDER [employer] [facility] Signed: 03/25/2024 19:22 Receipt Acknowledged By: 03/28/2024 16:55 /turner/ HORTENCIA BLANCO NURSE PRACTITIONER 03/25/2024 ADDENDUM STATUS: COMPLETED [id number] Status: 1703 Clinical Review /turner/ SUNNI ALEXANDER [employer] [employer] [employer] [facility] Signed: 03/25/2024 19:22 SUNNI ALEXANDER [facility]
--- OUTSIDE RECORDS SUMMARY | 2024-05-18 04:30 | XMS_ITS | Encounter Summary ---
Author Name [facility] [place] Organization [facility] [place] [place] Address [address] [place] [id number] Care Team Providers Care Ground Hel[employer] Name Role Phone HORTENCIA BLANCO Primary Care [...] PART A Jul 02, 2022 PART A [id number] [id number] XANDER CARO JR IN PATIENT MEDICARE (WNR) MEDICARE (M) PART B Jul 02, 2022 PART B [id number] [id number] XANDER CARO JR IN PATIENT Selected Encounter This section includes the information on record at [place] for the Encounter. Date/Time Encounter Type Encounter Description Reason Provider Source May 18, 2024 08:30 AM OFFICE O/P EST LOW 20 MIN PRIMARY CARE/MEDICINE ICD-10-CM R94.31 Abnormal electrocardiogram [ECG] [EKG] STEVEN BLANCO A E Encounter Template Text not used by [place] Assessments - Encounter Diagnoses This section includes the primary and secondary diagnoses documented for the Encounter. Date/Time Primary/Secondary Diagnosis Diagnosis Name Provider Source May 18, 2024 11:41 AM PRIMARY Abnormal electrocardiogram [ECG] [EKG] SWATHI BLANCO [facility] May 18, 2024 11:41 AM SECONDARY Anxiety disorder, unspecified SWATHI BLANCO [facility] May 18, 2024 11:41 AM SECONDARY Encounter for immunization MAICO LOUIE [facility] Plan of Treatment: Future Appointments (+ 6 months) and Future Tests (+/- 45 days) The Plan of Treatment section includes future care activities for the [facility] [place] [facility] This section includes future appointments and future orders which are active, pending or scheduled. Future Appointments This section includes appointments that were scheduled to occur 6 months from the date of the Encounter, up to a maximum of 20 appointments. The data comes from all [place] treatment facilities. Appointment Date/Time Appointment Type Appointme nt Facility Name Sep 05, 2024 09:45 AM AMBULATORY - NONE [facility] Sep 12, 2024 08:00 AM AMBULATORY - NONE [facility] October 07, 2024 08:00 AM AMBULATORY [facility] Lab Results: +/- 30 days of the encounter This section includes the Chemistry and Hematology Lab Results on record with [place] for the patient. Radiology Reports and Pathology Reports are provided separately, in subsequent sections. Lab Results This section contains the Chemistry/Hematology Results that were resulted 30 days before or 30 daysafter the date of the Encounter. Date/Time Source Result Type Result - Unit Interpretation Reference Range Specimen Type Comment May 18, 2024 09:17 AM [facility] AMYLASE PLASMA Specimen Type: PLASMA No comment entered. Ordering Provider: HORTENCIA BLANCO Report Released Date/Time: May 18, 2024 09:04 AM Reporting Lab: [address] [address] Performing Lab: [address] [address] AMYLASE 37 U/L 25-125 May 18, 2024 09:17 AM [facility] LIPASE PLASMA Specimen Type: PLASMA No comment entered. Ordering Provider: HORTENCIA BLANCO Report Released Date/Time: May 18, 2024 09:04 AM Reporting Lab: [address] [address] Performing Lab: [address] [address] LIPASE 37 U/L <60 Immunizations: All administered on the encounter date This section contains immunizations associated to the Encounter. Immunization Series Date Issued Administered By Site Reaction Lot Number CVX Code Drug Trolley Wire Installer Comment(s) Source RSV, BIVALENT, PROTEIN SUBUNIT RSVPREF, DILUENT RECONSTITUTED , 0.5 ML, PF May 18, 2024 MAICO LOUIE RIGHT DELTO ID [id number] [employer] [facility] D AT [place] Social History: Smoking Status (Most current) and Tobacco Use (All prior to encounter date) This section includes the most current, and the historical, smoking and tobacco- related health factors from the [place] facility where the Encounter took place. Current Smoking Status This section includes the most current smoking, or tobacco-related health factor, from the [place] facility where the Encounter took place. Date/Time Current Smoking Status Comment Facil ity Sep 21, 2023 09:30 AM VA-TOBACCO QUIT 15 YRS OR MORE [facility] Tobacco Use History This section includes a history of the smoking, or tobacco-related health factors, that were collected on or before the date of the Encounter. The data comes from the [place] facility where the Encounter took place. Date/Time [...] the Encounter. Date/Time Encounter Note(s) Provider Source May 18, 2024 08:48 AM INTERNAL MEDICINE OUTPATIENT NOTE: LOCAL TITLE: PRIMARY CARE OUTPATIENT NOTE (T) STANDARD TITLE: INTERNAL MEDICINE OUTPATIENT NOTE DATE OF NOTE: MAY 18, 2024@08:48 ENTRY DATE: MAY 18, 2024@08:48:51 AUTHOR: HORTENCIA BLANCO COSIGNER: URGENCY: STATUS: COMPLETED In-person Note 68yo [place] Reason for Visit: Here with complaints of abdominal fullness. States he feels like his belly is full, mostly when he stands up. It happens occassionally. States his appetite is the same, no vomiting, no change in bowels. Also seeing cardiology for arrhythmia. He was to have a dental procedure and was cancelled due to frequent PVCs. When inquiring about the history of symptoms it occurs to him it may have been when the heart issues started. 9 Active Problems PROBLEM LAST MOD PROVIDER ECG: premature ventricular contractions 03/23/2024 HORTENCIA BLANCO Hypomagnesemia 03/23/2024 HORTENCIA BLANCO GERD - Gastro-esophageal reflux disease 07/17/2023 HORTENCIA BLANCO Pain radiating to right shoulder 03/18/2023 STEVEN BLANCOCA CAD - Coronary artery disease 03/27/2021 BELLAHORTENCIA Hypothyroidism 09/19/2020 VLAD JENSEN Essential hypertension 09/19/2020 [...] 20MG TAB TAKE ONE TABLET BY ACTIVE MOUTH AT BEDTIME 3) BUPROPION HCL 300MG 24HR SA TAB TAKE ONE TABLET BY ACTIVE (S) MOUTH EVERY DAY 4) DICLOFENAC NA 1% TOP GEL APPLY 2GM MEASURED ON ACTIVE DOSING CARD EXTERNALLY TWICE A DAY (GENTLY MASSAGE INTO SKIN) *FLAMMABLE: KEEP AWAY FROM HEAT AND FLAMES* RIGHT SHOULDER 5) IBUPROFEN 800MG TAB TAKE ONE TABLET BY MOUTH THREE ACTIVE TIMES A DAY NEEDED FOR PAIN (TAKE WITH FOOD) 6) LEVOTHYROXINE NA (SYNTHROID) 75MCG TAB TAKE ONE ACTIVE TABLET BY MOUTH EVERY MORNING, ON AN EMPTY STOMACH 30-60 MINUTES BEFORE BREAKFAST 7) NITROGLYCERIN 0.4MG SL TAB DISSOLVE ONE TABLET UNDER ACTIVE THE TONGUE NEEDED FOR CHEST PAIN; IF CHEST PAIN IS NOT IMPROVED 5 MINUTES AFTER TAKING 1 TABLET, CALL 911 STORE IN ORIGINAL CONTAINER 8) OMEPRAZOLE 20MG EC CAP TAKE ONE CAPSULE BY MOUTH ACTIVE EVERY MORNING, ON AN EMPTY STOMACH FOR INDIGESTION Active Non-VA Medications Status ========= 1) Non-VA NITROGLYCERIN 0.4MG SL TAB 0.4MG UNDER THE ACTIVE TONGUE NEEDED 9 Total Medications PHYSICAL EXAM: Vital Signs: T: 98.6 F [37.0 C] (05/18/2024 08:25) P: 65 (05/18/2024 08:25) R: 16 (05/18/2024 08:25) BP: 138/82 (05/18/2024 08:25) Pain: 0 (05/18/2024 08:25) Height: 65 in [165.1 cm] (03/27/2021 10:11) Weight: 166 lb [75.30 kg] (05/18/2024 08:25) Pulse Ox: 97% (05/18/2024 08:25) General: Head, Ears, Eyes, Nose, and Throat: Neck: Chest/Lungs: CTA Cardiovascular: RRR Gastrointestinal: abdomen soft, nontender,bowel sounds present, negative Barreto's sign Extremities: no edema ASSESSMENT/PLAN: He will continue to monitor to see if he finds a correlation with fullness and his heart. Instructed to take his pulse withthe sensation. Labs today to rule out pancreatic process. HEALTH MAINTENANCE/CLINICAL REMINDERS: MEDICATION RECONCILIATION Medication Reconciliation report reviewed and discussed with patient/caregiver. VA prescription medications, non-VA prescription medications, OTC and herbal medications reviewed: Patient/caregiver verifies that the list is complete and accurate and voices understanding. Patient/caregiver in possession of printed medication list. FOLLOW-UP: scheduled or as needed I am the Staff Provider. TOTAL TIME SPENT: Spent 23 minutes in care of this patient today including review of records, exam, and placing orders. /turner/ HORTENCIA BLANCO NURSE PRACTITIONER Signed: 05/18/2024 11:41 HORTENCIA BLANCO [facility] May 18, 2024 08:33 AM NURSING MEDICATION MGT NOTE: LOCAL TITLE: MEDICATION ADMINISTRATION NOTE (T) STANDARD TITLE: NURSING MEDICATION MGT NOTE DATE OF NOTE: MAY 18, 2024@08:33 ENTRY DATE: MAY 18, 2024@08:33:08 AUTHOR: MOLLY LOUIE EXP COSIGNER: URGENCY: STATUS: COMPLETED Immunization Documentation: Administered: RSV, BIVALENT, PROTEIN SUBUNIT RSVPREF, DILUENT RECONSTITUTED, 0.5 ML, PF Date Administered: May 18, 2024 08:30 Trolley Wire Installer: [employer] Sdn Lot: [id number] Exp Date: Feb 28, 2025 [facility]: [id number] Admin Route/Site: INTRAMUSCULAR/RIGHT DELTOID Dosage: 0.5mL Vaccine Information Statement(s): RSV (RESPIRATORY SYNCYTIAL VIRUS) VACCINE VIS Mar 17, 2024 (JAPANESE) Order By: Policy Administered By: Molly Louie /turner/ MOLLY LOUIE LICENSED PRACTICAL NURSE Signed: 05/18/2024 08:34 MOLLY LOUIE [facility] May 18, 2024 08:19 AM PRIMARY CARE NURSI NOTE: LOCAL TITLE: OUTPATIENT NURSING INTAKE NOTE (T) STANDARD TITLE: PRIMARY CARE NURSING NOTE DATE OF NOTE: MAY 18, 2024@08:19 ENTRY DATE: MAY 18, 2024@08:19:40 AUTHOR: MOLLY LOUIE EXP COSIGNER: URGENCY: STATUS: COMPLETED Hemoglobin A1C Results: [...] 10:02 PENICILLIN ANAPHYLAXIS MEDICATION LIST REVIEW REPORT Patient states no change in documented OTC/Herbals at this visit. 1. Has the patient been feeling sad or distressed? No 2. Has the patient been having personal or family problems? No 3. Has the patient been experiencing worry and/or stress? No 4. Has the patient been having problems with drugs and/or alcohol? No 5. Crisis Line pocket card was provided to patient. No/patient declined [facility] not documented this visit. Clinical Reminders Activity Patient Education Documentation: LEARNING NEEDS ASSESSMENT: The patient/family/significant other reports no changes in learning needs. /turner/ MOLLY LOUIE LICENSED PRACTICAL NURSE Signed: 05/18/2024 08:30 MOLLY LOUIE [facility]
--- OUTSIDE RECORDS SUMMARY | 2024-09-12 04:00 | XMS_ITS | Encounter Summary ---
Author Name [facility] [place] Organization [facility] [place] Address [address] [place] [id number] Care Team Providers Care Database Support Name Role Phone HORTENCIA BLANCO Primary Care [...] PART A Jul 02, 2022 PART A [id number] XANDER CARO JR IN PATIENT MEDICARE (WNR) MEDICARE (M) PART B Jul 02, 2022 PART B [id number] XANDER CARO JR IN PATIENT Selected Encounter This section includes the information on record at [place] for the Encounter. Date/Time Encounter Type Encounter Description Reason Provider Source Sep 12, 2024 08:00 AM OFFICE O/P EST MOD 30 MIN PRIMARY CARE/MEDICINE ICD-10-CM R94.31 Abnormal electrocardiogram [ECG] [EKG] STEVEN BLANCO [facility] Encounter Template Text not used by [place] Assessments - Encounter Diagnoses This section includes the primary and secondary diagnoses documented for the Encounter. Date/Time Primary/Secondary Diagnosis Diagnosis Name Provider Source Sep 12, 2024 04:44 PM PRIMARY Abnormal electrocardiogram [ECG] [EKG] SWATHI BLANCO Sep 12, 2024 04:44 PM SECONDARY Essential (primary) hypertension SWATHI BLANCO Sep 12, 2024 04:44 PM SECONDARY Hyperlipidemia, unspecified SWATHI BLANCO [facility] Sep 12, 2024 04:44 PM SECONDARY Pain in right shoulder SWATHI BLANCO [facility] Sep 12, 2024 04:44 PM SECONDARY Pain in unspecified knee SWATHI BLANCO DONYAAILEEN Plan of Treatment: Future Appointments (+ 6 months) and Future Tests (+/- 45 days) The Plan of Treatment section includes future care activities for the patient [facility] [place] [facility] This section includes future appointments and future orders which are active, pending or scheduled. Future Appointments This section includes appointments that were scheduled to occur 6 months from the date of the Encounter, up to a maximum of 20 appointments. The data comes from all [facility]. Appointment Date/Time Appointment Type Appointme nt Facility Name October 07, 2024 08:00 AM AMBULATORY - NONE [facility] Mar 08, 2025 08:15 AM AMBULATORY - NONE [facility] Mar 14, 2025 08:30 AM AMBULATORY [facility] Active, Pending, and Scheduled Orders This section includes a listing of several types of active, pending, and scheduled orders, including clinic medications orders, diagnostic test orders, procedure orders and consult orders; where the start date of the order is 45 days before the date of the Encounter or 45 days after the date of theEncounter. The data comes from all [facility]. Test Date/Time Test Type Test Details Facility Name Sep 05, 2024 12:00 AM Laboratory - Chemi stry Order URINALYSIS URINE SP ONCE [facility] Sep 21, 2024 12:00 AM Laboratory - Chemi stry Order LIPID PROFILE LT GREEN PLASMA SP ONCE [facility] Sep 21, 2024 12:00 AM Laboratory - Chemi stry Order HEMOGLOBIN A1C LAVENDER BLOOD SP ONCE [facility] Sep 21, 2024 12:00 AM Laboratory - Chemi stry Order CBC LAVENDER BLOOD SP ONCE [facility] Sep 21, 2024 12:00 AM Laboratory - Chemi stry Order TSH LT GREEN PLASMA SP ONCE [facility] Sep 21, 2024 12:00 AM Laboratory - Chemi stry Order FREE T4 LT GREEN PLASMA SP ONCE [facility] Sep 21, 2024 12:00 AM Laboratory - Chemi stry Order URINALYSIS URINE SP ONCE [facility] Sep 21, 2024 12:00 AM Laboratory - Chemi stry Order COMPREHENSIVE METABOLIC PANEL LT GREEN PLASMA SP ONCE [facility] Lab Results: +/- 30 days of the encounter This section includes the Chemistry and Hematology Lab Results on record with [place] for the patient. Radiology Reports and Pathology Reports are provided separately, in subsequent sections. Lab Results This section contains the Chemistry/Hematology Results that were resulted 30 days before or 30 daysafter the date of the Encounter. Date/Time Source Result Type Result - Unit Interpretation Reference Range Specimen Type Comment Sep 05, 2024 09:29 AM [facility] FREE T4 PLASMA Specimen Type: PLASMA Comment: GLUCOSE The ADA recommends a fasting glucose of 99 mg/dL as the GLUCOSE upper limit of normal. TP Per package insert reference range for recumbent is 6.0 to 7.8 TP g/dL. Plasma samples will generally have higher values (about TP 0.2 to 0.4 g/dL higher) due to presence of fibrinogen. TRIG REFERENCE RANGE: BORDERLINE HIGH: 150-199 mg/dL HIGH: 200-499 TRIG mg/dL VERY HIGH: >=500 mg/dL CHOL REF RANGE: BORDERLINE HIGH: 200-239 mg/dL HIGH: >=240 mg/dL HDLC Values >60 are a negative risk factor for heart disease. DLDL REF RANGE: NEAR OR ABOVE OPTIMAL: 100-129 mg/dL BORDERLINE DLDL HIGH: 130-159 mg/dL HIGH: 160-189 mg/dL VERY HIGH: >=190 Ordering Provider: HORTENCIA BLANCO Report Released Date/Time: Sep 05, 2024 09:37 AM Reporting Lab: [address] [phone] Performing Lab: [address] [phone] FREE T4 1.22 ng/dL 0.70-1.48 Sep 05, 2024 09:29 AM [facility] LIPID PROFILE PLASMA Specimen Type: P LASMA Comment: GLUCOSE The ADA recommends a fasting glucose of 99 mg/dL as the GLUCOSE upper limit of normal. TP Per package insert reference range for recumbent is 6.0 to 7.8 TP g/dL. Plasma samples will generally have higher values (about TP 0.2 to 0.4 g/dL higher) due to presence of fibrinogen. TRIG REFERENCE RANGE: BORDERLINE HIGH: 150-199 mg/dL HIGH: 200-499 TRIG mg/dL VERY HIGH: >=500 mg/dL CHOL REF RANGE: BORDERLINE HIGH: 200-239 mg/dL HIGH: >=240 mg/dL HDLC Values >60 are a negative risk factor for heart disease. DLDL REF RANGE: NEAR OR ABOVE OPTIMAL: 100-129 mg/dL BORDERLINE DLDL HIGH: 130-159 mg/dL HIGH: 160-189 mg/dL VERY HIGH: >=190 Ordering Provider: HORTENCIA BLANCO Report Released Date/Time: Sep 05, 2024 09:37 AM Reporting Lab: [address] [id number] Performing Lab: [address] [address] CHOLESTEROL 118 mg/dL 0-199 LDL CHOLESTEROL 78 mg/dL 0-99 HDL CHOLESTEROL 35 mg/dL L >40 TRIGLYCERIDE 48 mg/dL 0-149 Sep 05, 2024 09:29 AM [facility] COMPREHENSIVE METABOLIC PANEL PLASMA S pecimen Type: PLASMA Comment: GLUCOSE The ADA recommends a fasting glucose of 99 mg/dL as the GLUCOSE upper limit of normal. TP Per package insert reference range for recumbent is 6.0 to 7.8 TP g/dL. Plasma samples will generally have higher values (about TP 0.2 to 0.4 g/dL higher) due to presence of fibrinogen. TRIG REFERENCE RANGE: BORDERLINE HIGH: 150-199 mg/dL HIGH: 200-499 TRIG mg/dL VERY HIGH: >=500 mg/dL CHOL REF RANGE: BORDERLINE HIGH: 200-239 mg/dL HIGH: >=240 mg/dL HDLC Values >60 are a negative risk factor for heart disease. DLDL REF RANGE: NEAR OR ABOVE OPTIMAL: 100-129 mg/dL BORDERLINE DLDL HIGH: 130-159 mg/dL HIGH: 160-189 mg/dL VERY HIGH: >=190 Ordering Provider: HORTENCIA BLANCO Report Released Date/Time: Sep 05, 2024 09:37 AM Reporting Lab: [address] [phone] Performing Lab: [address] [phone] ALBUMIN 4.0 g/dL 3.5-4.8 ALKALINE PHOSPHATASE 63 U/L 40-150 ALT/SGPT 35 U/L 0-55 AST/SGOT 24 U/L 10-40 BUN 15.6 mg/dL 8.4-25.7 CALCIUM 9.0 mg/dL 8.6-10.3 CREATININE 1.1 mg/dL 0.7-1.3 CO2 25 mmol/L 22-30 GLUCOSE 112 mg/dL H 74-99 PROTEIN, TOTAL 6.8 g/dL 6.4-8.3 SODIUM 136 mmol/L 134-144 CHLORIDE 106 mmol/L 99-112 BILIRUBIN, TOTAL 1.1 mg/dL 0.2-1.2 POTASSIUM 5.1 mmol/L 3.5-5.1 ANION GAP 10 mmol/L 10-20 EGFR (CALCULATED) 74 Sep 05, 2024 09:29 AM [facility] HEMOGLOBIN A1C BLOOD Specimen Type: B LOOD Comment: Values obtained from A1C measurements can vary. For typical A1C assays, a reported value of 7.0 could actually be between 6.72 and 7.28 if measured by a reference method. A reported value of 9.0 could actually be between 8.73 and 9.27. Ref: http://www.ngsp.org/CAPdata.asp Ordering Provider: HORTENCIA BLANCO Report Released Date/Time: Sep 05, 2024 09:37 AM Reporting Lab: [address] [phone] Performing Lab: [address] [phone] HEMOGLOBIN A1C 5.9 H 3.6-5.7 Sep 05, 2024 09:29 AM [facility] TSH PLASMA Specimen Type: PLASMA Comment: GLUCOSE The ADA recommends a fasting glucose of 99 mg/dL as the GLUCOSE upper limit of normal. TP Per package insert reference range for recumbent is 6.0 to 7.8 TP g/dL. Plasma samples will generally have higher values (about TP 0.2 to 0.4 g/dL higher) due to presence of fibrinogen. TRIG REFERENCE RANGE: BORDERLINE HIGH: 150-199 mg/dL HIGH: 200-499 TRIG mg/dL VERY HIGH: >=500 mg/dL CHOL REF RANGE: BORDERLINE HIGH: 200-239 mg/dL HIGH: >=240 mg/dL HDLC Values >60 are a negative risk factor for heart disease. DLDL REF RANGE: NEAR OR ABOVE OPTIMAL: 100-129 mg/dL BORDERLINE DLDL HIGH: 130-159 mg/dL HIGH: 160-189 mg/dL VERY HIGH: >=190 Ordering Provider: HORTENCIA BLANCO Report Released Date/Time: Sep 05, 2024 09:37 AM Reporting Lab: [place] [phone] Performing Lab: [place] [phone] TSH 0.236 u[IU]/mL L 0.350-4.940 Sep 05, 2024 09:29 AM [facility] CBC BLOOD Specimen Type: BLOOD No comment entered. Ordering Provider: HORTENCIA BLANCO Report Released Date/Time: Sep 05, 2024 09:37 AM Reporting Lab: [place] [phone] Performing Lab: [place] [phone] WBC COUNT 8.2 10*3/uL 3.6-11.0 RBC COUNT 5.15 10*6/uL 4.47-5.83 HGB 16.0 g/dL 13.6-17.4 HCT 46.5 40.0-51.0 MCV 90.3 fL 80.0-96.0 MCH 31.0 pg 27.0-31.0 MCHC 34.3 g/dL 31.5-36.5 PLT 225 10*3/uL 150-400 LYMPHS % 18.8 L 21.0-51.0 MONOCYTES % 11.6 H 4.0-8.0 NUCLEATED RBC/100WBC 0.1 /100{WBCs} RDW 13.8 11.2-15.8 NEUTROPHIL % 66.8 54.0-78.0 EOSINOPHIL % 2.2 0.0-3.0 BASOPHIL % 0.6 0.0-3.0 ABSOLUTE LYMPHOCYTE COUNT 1.5 10*3/uL 0. 8-5.0 ABSOLUTE NEUTROPHIL COUNT 5.5 10*3/uL 1. 9-8.6 ABSOLUTE BASOPHIL COUNT 0.0 10*3/uL 0.0- 0.3 ABSOLUTE MONOCYTE COUNT 0.9 10*3/uL 0.1- 0.9 ABSOLUTE EOSINOPHIL COUNT 0.2 10*3/uL 0. 0-0.3 MPV 8.3 fL 7.4-11.4 Sep 05, 2024 12:00 AM [facility] OCCULT BLOOD FIT X1 SCREEN (MFP ONLY) FECES Specimen Type: FECES No comment entered. Ordering Provider: HORTENCIA BLANCO Report Released Date/Time: Aug 03, 2024 02:14 PM Reporting Lab: [facility] [id number] [place] [phone] Performing Lab: [facility] [address] [facility] [phone] OCCULT BLOOD (FIT) #1 OF 1 Negative Nega tive Social History: Smoking Status (Most current) and Tobacco Use (All prior to encounter date) This section includes the most current, and the historical, smoking and tobacco- related health factors from the [place] facility where the Encounter took place. Current Smoking Status This section includes the most current smoking, or tobacco-related health factor, from the [place] facility where the Encounter took place. Date/Time Current Smoking Status Comment Facil ity Sep 12, 2024 08:00 AM VA-TOBACCO NEVER USED OTHER TYPE [facility] Tobacco Use History This section includes a history of the smoking, or tobacco-related health factors, that were collected on or before the date of the Encounter. The data comes from the [place] facility where the Encounter took place. Date/Time Smoking Status/Tobacco Use Comment F acility Sep 12, 2024 08:00 AM VA-TOBACCO USE FORMER CIGARETTES [facility] Sep 21, 2023 09:30 AM VA-TOBACCO FORMER USER [facility] Sep 21, 2023 09:30 AM VA-TOBACCO QUIT [...] the Encounter. Date/Time Encounter Note(s) Provider Source Dec 16, 2024 11:00 AM ADDENDUM: LOCAL TITLE: Addendum STANDARD TITLE: ADDENDUM DATE OF NOTE: DEC 16, 2024@11:00:58 ENTRY DATE: DEC 16, 2024@11:00:59 AUTHOR: JOIE FENG EXP COSIGNER: URGENCY: STATUS: COMPLETED [facility] called and LVM asking for a return call to update his PCP about his upcoming surgery and asked for a refill of his Nitro. Called [facility] back, he reports he was found to have a blockage in his lower chamber of his heart and has an upcoming heart surgery at the [facility] on January 17 to fix this issue. reports he only has a few Nitro tablets left and is asking for a refill as only has a few left. [facility] reports he has been utilizing the Nitro more than he had in the past. Explained will forward this information to his team, will ask PCP if she can request the Nitro to be sent in the overnight mail. This mortgage loan underwriter also gave [facility] the [place] CC contact number, (he was not sure if he had it in the paperwork they had sent.) [facility] thankful for return call and was agreeable to keeping his team updated, call the team if any further assistance is needed. /es/ JOIE FENG REGISTERED NURSE Signed: 12/16/2024 11:13 Receipt Acknowledged By: 12/16/2024 12:23 /turner/ HORTENCIA BLANCO NURSE PRACTITIONER --- Original Document --- 09/12/24 PRIMARY CARE OUTPATIENT NOTE (T): In-person Note 69yo Reason for Visit: Here for follow up visit. He states his right knee will bother him at times. He is still attempting to have dental work completed, he initially was found to be in an arrhythmia and needed cardiology consult. He has frequent PVCs. His heart rate had been in the 50s consistently but is now in the 40s. He has not seen cardiology in a while and isn't scheduled to see until October. He wasn't fond of the cardiolgist he saw as he felt he wans'st getting answers. 9 Active Problems PROBLEM LAST MOD PROVIDER ECG: premature ventricular contractions 03/23/2024 HORTENCIA BLANCO Hypomagnesemia 03/23/2024 HORTENCIA BLANCO GERD - Gastro-esophageal reflux disease 07/17/2023 HORTENCIA BLANCO Pain radiating to right shoulder 03/18/2023 HORTENCIA BLANCO CAD - Coronary artery disease 03/27/2021 BELLAHORTENCIA [...] Medications (including Supplies): Active Outpatient Medications Status 1) AMLODIPINE BESYLATE 5MG TAB TAKE ONE TABLET BY MOUTH ACTIVE EVERY DAY FOR HIGH BLOOD PRESSURE 2) ATORVASTATIN CALCIUM 20MG TAB TAKE ONE TABLET BY ACTIVE MOUTH AT BEDTIME 3) BUPROPION HCL 300MG 24HR SA TAB TAKE ONE TABLET BY ACTIVE MOUTH EVERY DAY 4) DICLOFENAC NA 1% TOP GEL APPLY 2GM MEASURED ON ACTIVE DOSING CARD EXTERNALLY TWICE A DAY (GENTLY MASSAGE INTO SKIN) *FLAMMABLE: KEEP AWAY FROM HEAT AND FLAMES* RIGHT SHOULDER 5) IBUPROFEN 800MG TAB TAKE ONE TABLET BY MOUTH THREE ACTIVE TIMES A DAY NEEDED FOR PAIN (TAKE WITH FOOD) 6) LEVOTHYROXINE NA 75MCG TAB TAKE ONE TABLET BY MOUTH ACTIVE EVERY MORNING, ON AN EMPTY STOMACH 30-60 [...] STOMACH FOR INDIGESTION Active Non-VA Medications Status 1) Non-VA METOPROLOL SUCCINATE 50MG SA TAB 50MG MOUTH ACTIVE EVERY DAY 2) Non-VA NITROGLYCERIN 0.4MG SL TAB 0.4MG UNDER THE ACTIVE TONGUE NEEDED 10 Total Medications Report Released Date/Time: Sep 05, 2024@18:09 Provider: HORTENCIA BLANCO Specimen: BLOOD. [facility] [id number] Specimen Collection Date: Sep 05, 2024@09:29 Test name Result units Ref. range Site Code HEMOGLOBIN A1C 5.9 H % 3.6 - 5.7 [541] Eval: Values obtained from A1C measurements can vary. For typical A1C assays, a Eval: reported value of 7.0 could actually be between 6.72 and 7.28 if measured Eval: by a reference method. A reported value of 9.0 could actually be between Eval: 8.73 and 9.27. Ref: https://ngsp.org/CAPdata.asp WBC COUNT 8.2 K/cmm 3.6 - 11.0 [541] RBC COUNT 5.15 M/cmm 4.47 - 5.83 [541] HGB 16.0 g/dL 13.6 - 17.4 [541] HCT 46.5 % 40.0 - 51.0 [541] MCV 90.3 fL 80.0 - 96.0 [541] MCH 31.0 pg 27.0 - 31.0 [541] MCHC 34.3 g/dL 31.5 - 36.5 [541] RDW 13.8 % 11.2 - 15.8 [541] PLT 225 K/cmm 150 - 400 [541] MPV 8.3 fL 7.4 - 11.4 [541] NEUTROPHIL % 66.8 % 54.0 - 78.0 [541] LYMPHS % 18.8 L % 21.0 - 51.0 [541] MONOCYTES % 11.6 H % 4.0 - 8.0 [541] EOSINOPHIL % 2.2 % 0.0 - 3.0 [541] BASOPHIL % 0.6 % 0.0 - 3.0 [541] ABSOLUTE NEUTROPHIL COUNT 5.5 K/cmm 1.9 - 8.6 [541] ABSOLUTE LYMPHOCYTE COUNT 1.5 K/cmm 0.8 - 5.0 [541] ABSOLUTE MONOCYTE COUNT 0.9 K/cmm 0.1 - 0.9 [541] ABSOLUTE EOSINOPHIL COUNT 0.2 K/cmm 0.0 - 0.3 [541] ABSOLUTE BASOPHIL COUNT 0.0 K/cmm 0.0 - 0.3 [541] NUCLEATED RBC/100WBC 0.1 /100 WBC None Established - None Established [541] Comment: Values obtained from A1C measurements can vary. For typical A1C assays, a reported value of 7.0 could actually be between 6.72 and 7.28 if measured by a reference method. A reported value of 9.0 could actually be between 8.73 and 9.27. Ref: http://www.ngsp.org/CAPdata.as p Report Released Date/Time: Sep 05, 2024@19:21 Provider: HORTENCIA BLANCO Specimen: PLASMA. [facility] [id number] Specimen Collection Date: Sep 05, 2024@09:29 Test name Result units Ref. range Site Code GLUCOSE 112 H mg/dL 74 - 99 [541] SODIUM 136 mmol/L 134 - 144 [541] POTASSIUM 5.1 mmol/L 3.5 - 5.1 [541] CHLORIDE 106 mmol/L 99 - 112 [541] CO2 25 mmol/L 22 - 30 [541] BUN 15.6 mg/dL 8.4 - 25.7 [541] CREATININE 1.1 mg/dL 0.7 - 1.3 [541] CALCIUM 9.0 mg/dL 8.6 - 10.3 [541] EGFR (CALCULATED) 74 mL/min/1.73m2 BSA [541] Eval: eGFR results >60 are imprecise. Many variables affect the calculated Eval: result. Interpretation of eGFR results >60 must be monitored Eval: over time. ANION GAP 10 mmol/L 10 - 20 [541] AST/SGOT 24 U/L 10 - 40 [541] ALT/SGPT 35 U/L 0 - 55 [541] ALKALINE PHOSPHATASE 63 U/L 40 - 150 [541] BILIRUBIN, TOTAL 1.1 mg/dL 0.2 - 1.2 [541] PROTEIN, TOTAL 6.8 g/dL 6.4 - 8.3 [541] ALBUMIN 4.0 g/dL 3.5 - 4.8 [541] CHOLESTEROL 118 mg/dL 0 - 199 [541] LDL CHOLESTEROL 78 mg/dL 0 - 99 [541] HDL CHOLESTEROL 35 L mg/dL Ref: >=40 [541] TRIGLYCERIDE 48 mg/dL 0 - 149 [541] FREE T4 1.22 ng/dL 0.70 - 1.48 [541] TSH 0.236 L uIU/mL 0.350 - 4.940 [541] Comment: GLUCOSE The ADA recommends a fasting glucose of 99 mg/dL as the GLUCOSE upper limit of normal. TP Per package insert reference range for recumbent is 6.0 to 7.8 TP g/dL. Plasma samples will generally have higher values (about TP 0.2 to 0.4 g/dL higher) due to presence of fibrinogen. TRIG REFERENCE RANGE: BORDERLINE HIGH: 150-199 mg/dL HIGH: 200-499 TRIG mg/dL VERY HIGH: >=500 mg/dL CHOL REF RANGE: BORDERLINE HIGH: 200-239 mg/dL HIGH: >=240 mg/dL HDLC Values >60 are a negative risk factor for heart disease. DLDL REF RANGE: NEAR OR ABOVE OPTIMAL: 100-129 mg/dL BORDERLINE DLDL HIGH: 130-159 mg/dL HIGH: 160-189 mg/dL VERY HIGH: >=190 Report Released Date/Time: Sep 10, 2024@02:45 Provider: HORTENCIA BLANCO Specimen: FECES. FOB [id number] Specimen Collection Date: Sep 05, 2024 Test name Result units Ref. range Site Code OCCULT BLOOD (FIT) #1 OF 1 Negative Ref: Negative [541] PHYSICAL EXAM: Vital Signs: T: 98.1 F [36.7 C] (09/12/2024 07:49) P: 48 (09/12/2024 07:49) R: 16 (09/12/2024 07:49) BP: 133/80 (09/12/2024 07:49) Pain: 0 (09/12/2024 07:49) Height: 65 in [165.1 cm] (03/27/2021 10:11) Weight: 158 lb [71.67 kg] (09/12/2024 07:49) Pulse Ox: 97% (09/12/2024 07:49) General: in no acute distress Head, Ears, Eyes, Nose, and Throat: Neck: no bruit Chest/Lungs: Clear Cardiovascular: irregular heart tones Gastrointestinal: Extremities: no edema ASSESSMENT/PLAN: reviewed labs with EKG done in the clinic. shows marked bradycardia with marked arrhythmia and frequent PVCs. refer to cardiology in [place] ([facility]) for further work up. use diclofenac rub for joint pain- especially for knees HLD- continue with atorvastatin, LDL at goal GERD- stable with omeprazole HTN- BP at goal, continue amlodipine HEALTH MAINTENANCE/CLINICAL REMINDERS: MEDICATION RECONCILIATION Medication Reconciliation report reviewed and discussed with patient/caregiver. VA prescription medications, non-VA prescription medications, OTC and herbal medications reviewed: Patient/caregiver verifies that the list is complete and accurate and voices understanding. Patient/caregiver in possession of printed medication list. FOLLOW-UP: 6 mnths with labs I am the Staff Provider. TOTAL TIME SPENT: Spent 30 minutes in care of this patient today including review of records, exam, and placing orders. /turner/ HORTENCIA BLANCO NURSE PRACTITIONER Signed: 09/12/2024 16:44 JOIE FENG CB Sep 12, 2024 09:06 AM NURSING NOTE: LOCAL TITLE: NURSING NOTE STANDARD TITLE: NURSING NOTE DATE OF NOTE: SEP 12, 2024@09:06 ENTRY DATE: SEP 12, 2024@09:06:54 AUTHOR: AMPARO GIL COSIGNER: URGENCY: STATUS: COMPLETED EKG completed per order, results reviewed by pcp /turner/ AMPARO GIL LICENSED PRACTICAL NURSE Signed: 09/12/2024 09:07 AMPARO GIL [facility] Sep 12, 2024 08:13 AM INTERNAL MEDICINE OUTPATIENT NOTE: LOCAL TITLE: PRIMARY CARE OUTPATIENT NOTE (T) STANDARD TITLE: INTERNAL MEDICINE OUTPATIENT NOTE DATE OF NOTE: SEP 12, 2024@08:13 ENTRY DATE: SEP 12, 2024@08:13:16 AUTHOR: HORTENCIA BLANCO COSIGNER: URGENCY: STATUS: COMPLETED PRIMARY CARE OUTPATIENT NOTE (T) Has ADDENDA In-person Note 69yo [facility] Reason for Visit: Here for follow up visit. He states his right knee will bother him at times. He is still attempting to have dental work completed, he initially was found to be in an arrhythmia and needed cardiology consult. He has frequent PVCs. His heart rate had been in the 50s consistently but is now in the 40s. He has not seen cardiology in a while and isn't scheduled to see until October. He wasn't fond of the cardiolgist he saw as he felt he wans'st getting answers. 9 Active Problems PROBLEM LAST MOD PROVIDER [...] Medications (including Supplies): Active Outpatient Medications Status 1) AMLODIPINE BESYLATE 5MG TAB TAKE ONE TABLET BY MOUTH ACTIVE EVERY DAY FOR HIGH BLOOD PRESSURE 2) ATORVASTATIN CALCIUM 20MG TAB TAKE ONE TABLET BY ACTIVE MOUTH AT BEDTIME 3) BUPROPION HCL 300MG 24HR SA TAB TAKE ONE TABLET BY ACTIVE MOUTH EVERY DAY 4) DICLOFENAC NA 1% TOP GEL APPLY 2GM MEASURED ON ACTIVE DOSING CARD EXTERNALLY TWICE A DAY (GENTLY MASSAGE INTO SKIN) *FLAMMABLE: KEEP AWAY FROM HEAT AND FLAMES* RIGHT SHOULDER 5) IBUPROFEN 800MG TAB TAKE ONE TABLET BY MOUTH THREE ACTIVE TIMES A DAY NEEDED FOR PAIN (TAKE WITH FOOD) 6) LEVOTHYROXINE NA 75MCG TAB TAKE ONE TABLET BY MOUTH ACTIVE EVERY MORNING, ON AN EMPTY STOMACH 30-60 [...] STOMACH FOR INDIGESTION Active Non-VA Medications Status 1) Non-VA METOPROLOL SUCCINATE 50MG SA TAB 50MG MOUTH ACTIVE EVERY DAY 2) Non-VA NITROGLYCERIN 0.4MG SL TAB 0.4MG UNDER THE ACTIVE TONGUE NEEDED 10 Total Medications Report Released Date/Time: Sep 05, 2024@18:09 Provider: HORTENCIA BLANCO Specimen: BLOOD. [facility] [id number] Specimen Collection Date: Sep 05, 2024@09:29 Test name Result units Ref. range Site Code HEMOGLOBIN A1C 5.9 H % 3.6 - 5.7 [541] Eval: Values obtained from A1C measurements can vary. For typical A1C assays, a Eval: reported value of 7.0 could actually be between 6.72 and 7.28 if measured Eval: by a reference method. A reported value of 9.0 could actually be between Eval: 8.73 and 9.27. Ref: https://ngsp.org/CAPdata.asp WBC COUNT 8.2 K/cmm 3.6 - 11.0 [541] RBC COUNT 5.15 M/cmm 4.47 - 5.83 [541] HGB 16.0 g/dL 13.6 - 17.4 [541] HCT 46.5 % 40.0 - 51.0 [541] MCV 90.3 fL 80.0 - 96.0 [541] MCH 31.0 pg 27.0 - 31.0 [541] MCHC 34.3 g/dL 31.5 - 36.5 [541] RDW 13.8 % 11.2 - 15.8 [541] PLT 225 K/cmm 150 - 400 [541] MPV 8.3 fL 7.4 - 11.4 [541] NEUTROPHIL % 66.8 % 54.0 - 78.0 [541] LYMPHS % 18.8 L % 21.0 - 51.0 [541] MONOCYTES % 11.6 H % 4.0 - 8.0 [541] EOSINOPHIL % 2.2 % 0.0 - 3.0 [541] BASOPHIL % 0.6 % 0.0 - 3.0 [541] ABSOLUTE NEUTROPHIL COUNT 5.5 K/cmm 1.9 - 8.6 [541] ABSOLUTE LYMPHOCYTE COUNT 1.5 K/cmm 0.8 - 5.0 [541] ABSOLUTE MONOCYTE COUNT 0.9 K/cmm 0.1 - 0.9 [541] ABSOLUTE EOSINOPHIL COUNT 0.2 K/cmm 0.0 - 0.3 [541] ABSOLUTE BASOPHIL COUNT 0.0 K/cmm 0.0 - 0.3 [541] NUCLEATED RBC/100WBC 0.1 /100 WBC None Established - None Established [541] Comment: Values obtained from A1C measurements can vary. For typical A1C assays, a reported value of 7.0 could actually be between 6.72 and 7.28 if measured by a reference method. A reported value of 9.0 could actually be between 8.73 and 9.27. Ref: [email or web address]://www.[email or web address]/[email or web address].as p Report Released Date/Time: Sep 05, 2024@19:21 Provider: HORTENCIA BLANCO Specimen: PLASMA. [facility] [id number] Specimen Collection Date: Sep 05, 2024@09:29 Test name Result units Ref. range Site Code GLUCOSE 112 H mg/dL 74 - 99 [541] SODIUM 136 mmol/L 134 - 144 [541] POTASSIUM 5.1 mmol/L 3.5 - 5.1 [541] CHLORIDE 106 mmol/L 99 - 112 [541] CO2 25 mmol/L 22 - 30 [541] BUN 15.6 mg/dL 8.4 - 25.7 [541] CREATININE 1.1 mg/dL 0.7 - 1.3 [541] CALCIUM 9.0 mg/dL 8.6 - 10.3 [541] EGFR (CALCULATED) 74 mL/min/1.73m2 BSA [541] Eval: eGFR results >60 are imprecise. Many variables affect the calculated Eval: result. Interpretation of eGFR results >60 must be monitored Eval: over time. ANION GAP 10 mmol/L 10 - 20 [541] AST/SGOT 24 U/L 10 - 40 [541] ALT/SGPT 35 U/L 0 - 55 [541] ALKALINE PHOSPHATASE 63 U/L 40 - 150 [541] BILIRUBIN, TOTAL 1.1 mg/dL 0.2 - 1.2 [541] PROTEIN, TOTAL 6.8 g/dL 6.4 - 8.3 [541] ALBUMIN 4.0 g/dL 3.5 - 4.8 [541] CHOLESTEROL 118 mg/dL 0 - 199 [541] LDL CHOLESTEROL 78 mg/dL 0 - 99 [541] HDL CHOLESTEROL 35 L mg/dL Ref: >=40 [541] TRIGLYCERIDE 48 mg/dL 0 - 149 [541] FREE T4 1.22 ng/dL 0.70 - 1.48 [541] TSH 0.236 L uIU/mL 0.350 - 4.940 [541] Comment: GLUCOSE The ADA recommends a fasting glucose of 99 mg/dL as the GLUCOSE upper limit of normal. TP Per package insert reference range for recumbent is 6.0 to 7.8 TP g/dL. Plasma samples will generally have higher values (about TP 0.2 to 0.4 g/dL higher) due to presence of fibrinogen. TRIG REFERENCE RANGE: BORDERLINE HIGH: 150-199 mg/dL HIGH: 200-499 TRIG mg/dL VERY HIGH: >=500 mg/dL CHOL REF RANGE: BORDERLINE HIGH: 200-239 mg/dL HIGH: >=240 mg/dL HDLC Values >60 are a negative risk factor for heart disease. DLDL REF RANGE: NEAR OR ABOVE OPTIMAL: 100-129 mg/dL BORDERLINE DLDL HIGH: 130-159 mg/dL HIGH: 160-189 mg/dL VERY HIGH: >=190 Report Released Date/Time: Sep 10, 2024@02:45 Provider: HORTENCIA BLANCO Specimen: FECES. FOB [id number] Specimen Collection Date: Sep 05, 2024 Test name Result units Ref. range Site Code OCCULT BLOOD (FIT) #1 OF 1 Negative Ref: Negative [541] PHYSICAL EXAM: Vital Signs: T: 98.1 F [36.7 C] (09/12/2024 07:49) P: 48 (09/12/2024 07:49) R: 16 (09/12/2024 07:49) BP: 133/80 (09/12/2024 07:49) Pain: 0 (09/12/2024 07:49) Height: 65 in [165.1 cm] (03/27/2021 10:11) Weight: 158 lb [71.67 kg] (09/12/2024 07:49) Pulse Ox: 97% (09/12/2024 07:49) General: in no acute distress Head, Ears, Eyes, Nose, and Throat: Neck: no bruit Chest/Lungs: Clear Cardiovascular: irregular heart tones Gastrointestinal: Extremities: no edema ASSESSMENT/PLAN: reviewed labs with EKG done in the clinic. shows marked bradycardia with marked arrhythmia and frequent PVCs. refer to cardiology in [place] ([facility]) for further work up. use diclofenac rub for joint pain- especially for knees HLD- continue with atorvastatin, LDL at goal GERD- stable with omeprazole HTN- BP at goal, continue amlodipine HEALTH MAINTENANCE/CLINICAL REMINDERS: MEDICATION RECONCILIATION Medication Reconciliation report reviewed and discussed with patient/caregiver. [facility] prescription medications, non-VA prescription medications, OTC and herbal medications reviewed: Patient/caregiver verifies that the list is complete and accurate and voices understanding. Patient/caregiver in possession of printed medication list. FOLLOW-UP: 6 mnths with labs I am the Staff Provider. TOTAL TIME SPENT: Spent 30 minutes in care of this patient today including review of records, exam, and placing orders. /turner/ HORTENCIA BLANCO NURSE PRACTITIONER Signed: 09/12/2024 16:44 12/16/2024 ADDENDUM STATUS: COMPLETED called and LVM asking for a return call to update his PCP about his upcoming surgery and asked for a refill of his Nitro. Called back, he reports he was found to have a blockage in his lower chamber of his heart and has an upcoming heart surgery at the [facility] on January 17 to fix this issue. reports he only has a few Nitro tablets left and is asking for a refill as only has a few left. reports he has been utilizing the Nitro more than he had in the past. Explained will forward this information to his team, will ask PCP if she can request the Nitro to be sent in the overnight mail. This mortgage loan underwriter also gave Yesica the [place] CC contact number, (he was not sure if he had it in the paperwork they had sent.) [place] thankful for return call and was agreeable to keeping his team updated, call the team if any further assistance is needed. /es/ JOIE FENG REGISTERED NURSE Signed: 12/16/2024 11:13 Receipt Acknowledged By: * AWAITING SIGNATURE * HORTENCIA BLANCO [facility] Sep 12, 2024 07:45 AM PRIMARY CARE NURSI GERBER NOTE: LOCAL TITLE: OUTPATIENT NURSING INTAKE NOTE (T) STANDARD TITLE: PRIMARY CARE NURSING NOTE DATE OF NOTE: SEP 12, 2024@07:45 ENTRY DATE: SEP 12, 2024@07:45:39 AUTHOR: AMPARO GIL COSIGNER: URGENCY: STATUS: COMPLETED Hemoglobin A1C Results: Collection DT Specimen Test Name Result Units Ref Range 09/05/2024 09:29 BLOOD HEMOGLOBIN A1C 5.9 H % 3.6 - 5.7 Comment: Values obtained from A1C measurements can vary. For typical A1C Comment: assays, a reported value of 7.0 could actually be between 6.72 and Comment: 7.28 if measured by a reference method. A reported value of 9.0 Comment: could actually be between 8.73 and 9.27. Ref: Comment: http://www.ngsp.org/CAPdata.as p 03/16/2024 07:43 BLOOD HEMOGLOBIN A1C 6.1 H % 3.6 - 5.7 Comment: Values obtained from A1C measurements can vary. For typical A1C Comment: assays, a reported value of 7.0 could actually be between 6.72 and Comment: 7.28 if measured by a reference method. A reported value of 9.0 Comment: could actually be between 8.73 and 9.27. Ref: Comment: http://www.ngsp.org/CAPdata.as p 09/14/2023 08:58 BLOOD HEMOGLOBIN A1C 5.8 H % 3.6 - 5.7 Comment: Values obtained from A1C measurements can vary. For typical A1C Comment: assays, a reported value of 7.0 could actually be between 6.72 and Comment: 7.28 if measured by a reference method. A reported value of 9.0 Comment: could actually be between 8.73 and 9.27. Ref: Comment: http://www.ngsp.org/CAPdata.as p Review Allergies Allergies reviewed and updated per protocol. ALLERGIES/ADVERSE REACTIONS Type: DRUG Date/Time Reactant Severity Reaction 09/19/2020 10:02 PENICILLIN ANAPHYLAXIS Have you fallen in the last 30 days? NO MEDICATION LIST REVIEW REPORT Patient states no [...] not documented this visit. Clinical Reminders Activity Alcohol Use Screen (AUDIT-C): Alcohol Screen: SCREEN FOR ALCOHOL (AUDIT-C) An alcohol screening test (AUDIT-C) was negative (score=0). 1. How often did you have a drink containing alcohol in the past year? Consider a drink to be a 12 ounce can or bottle of regular beer, 8 ounces of malt liquor, a 5 ounce glass of table wine, or a 1.5 ounce shot of liquor (like scotch, gin, or vodka). Never 2. How many drinks containing alcohol did you have on a typical day when you were drinking in the past year? Response not required due to responses to other questions. 3. How often did you have six or more drinks on one occasion in the past year? Response not required due to responses to other questions. BMI Screening: At this visit, the health risks of obesity were reviewed and discussed with the patient, and the benefits of a weight management treatment program, such as [facility]! was discussed and offered to the patient. Patient declines referral. After discussing the health risks of obesity and offering a referral to [facility] or another weight loss program outside the [facility], the patient DECLINES REFERRAL to [facility] or other weight loss program at this time. Depression Screening: Perform PHQ-2 A PHQ-2 screen was performed. The score was 0 which is a negative screen for depression. Over the past two weeks, how often have you been bothered by the following problems? 1. Little interest or pleasure in doing things Not at all 2. Feeling down, depressed, or hopeless Not at all Suicide Screen: C-SSRS Screening [place] Suicide Severity Rating Scale (C-SSRS) screener 1. Over the past month, have you wished you were or wished you could go to sleep and not wake up? No 2. Over the past month, have you had any actual thoughts of killing yourself? No 3. Over the past month, have you been thinking about how you might do this? Response not required due to responses to other questions. 4. Over the past month, have you had these thoughts and had some intention of acting on them? Response not required due to responses to other questions. 5. Over the past month, have you started to work out or worked out the details of how to kill yourself? Response not required due to responses to other questions. 6. If yes, at any time in the past month did you intend to carry out this plan? Response not required due to responses to other questions. 7. In your lifetime, have you ever done anything, started to do anything, or prepared to do anything to end your life (for example, collected pills, obtained a gun, gave away valuables, went to the roof but didn't jump)? No 8. If YES, was this within the past 3 months? Response not required due to responses to other questions. Patient Education Documentation: LEARNING NEEDS ASSESSMENT: The patient/family/significant other reports no changes in learning needs. Tobacco Use Screening: The patient is a former cigarette smoker. The patient has never used other types of tobacco. /turner/ AMPARO GIL LICENSED PRACTICAL NURSE Signed: 09/12/2024 07:52 AMPARO GIL [facility]
--- OUTSIDE RECORDS SUMMARY | 2024-09-13 09:09 | XMS_ITS | Encounter Summary ---
Author Name [facility] Organization [facility] Address [address] [place] [address] Care Team Providers Care Meat Apprentice Name Role Phone HORTENCIA BLANCO Primary Care [...] PART A Jul 02, 2022 PART A [id number] [id number] XANDER CARO JR IN PATIENT MEDICARE (WNR) MEDICARE (M) PART B Jul 02, 2022 PART B [id number] [id number] XANDER CARO JR IN PATIENT Selected Encounter This section includes the information on record at [place] for the Encounter. Date/Time Encounter Type Encounter Description Reason Pro vider Source Sep 13, 2024 01:09 PM Outpatient Encounter COMMUNITY CARE CONSULT IHE Encounter Template Text not used by [place] Plan of Treatment: Future Appointments (+ 6 months) and Future Tests (+/- 45 days) The Plan of Treatment section includes future care activities for the patient from all [place] treatmentfacilities. This section includes future appointments and future orders which are active, pending or scheduled. Future Appointments This section includes appointments that were scheduled to occur 6 months from the date of the Encounter, up to a maximum of 20 appointments. The data comes from all [place] treatment facilities. Appointment Date/Time Appointment Type Appointme nt Facility Name October 07, 2024 08:00 AM AMBULATORY - NONE MECHELLE Rodrigues [facility] Mar 08, 2025 08:15 AM AMBULATORY - NONE [facility]S [facility] Mar 14, 2025 08:30 AM AMBULATORY - NONE JOSÉ ANTONIOANDERS Rodrigues [facility] Active, Pending, and Scheduled Orders This section includes a listing of several types of active, pending, and scheduled orders, including clinic medications orders, diagnostic test orders, procedure orders and consult orders; where the start date of the order is 45 days before the date of the Encounter or 45 days after the date of theEncounter. The data comes from all [place] treatment facilities. Test Date/Time Test Type Test Details Facility Name Sep 05, 2024 12:00 AM Laboratory - Chemi stry Order URINALYSIS URINE SP ONCE [facility] Sep 21, 2024 12:00 AM Laboratory - Chemi stry Order LIPID PROFILE LT GREEN PLASMA SP ONCE [facility] Sep 21, 2024 12:00 AM Laboratory - Chemi stry Order HEMOGLOBIN A1C LAVENDER BLOOD SP ONCE [facility] Sep 21, 2024 12:00 AM Laboratory - Chemi stry Order TSH LT GREEN PLASMA SP ONCE [facility] Sep 21, 2024 12:00 AM Laboratory - Chemi stry Order CBC LAVENDER BLOOD SP ONCE [facility] Sep 21, 2024 12:00 AM Laboratory - Chemi stry Order FREE T4 LT GREEN PLASMA SP ONCE [facility] Sep 21, 2024 12:00 AM Laboratory - Chemi stry Order URINALYSIS URINE SP ONCE [facility] Sep 21, 2024 12:00 AM Laboratory - Chemi stry Order COMPREHENSIVE METABOLIC PANEL LT GREEN PLASMA SP ONCE [facility] Lab Results: +/- 30 days of the encounter This section includes the Chemistry and Hematology Lab Results on record with [place] for the patient. Radiology Reports and Pathology Reports are provided separately, in subsequent sections. Lab Results This section contains the Chemistry/Hematology Results that were resulted 30 days before or 30 daysafter the date of the Encounter. Date/Time Source Result Type Result - Unit Interpretation Reference Range Specimen Type Comment Sep 05, 2024 09:[address] [facility] FREE T4 PLASMA Specimen Type: PLASMA [...] Sep 05, 2024 09:37 AM Reporting Lab: [address] [phone] Performing Lab: [address] [address] FREE T4 1.22 ng/dL 0.70-1.48 Sep 05, 2024 09:[address] [facility] LIPID PROFILE PLASMA Specimen Type: P LASJUSTICE Comment: GLUCOSE The ADA recommends a fasting [...] Sep 05, 2024 09:37 AM Reporting Lab: [address] [address] Performing Lab: [address] [address] CHOLESTEROL 118 mg/dL 0-199 LDL CHOLESTEROL 78 mg/dL 0-99 HDL CHOLESTEROL 35 mg/dL L >40 TRIGLYCERIDE 48 mg/dL 0-149 Sep 05, 2024 09:[address] [facility] COMPREHENSIVE METABOLIC PANEL PLASMA S pecimen [...] Sep 05, 2024 09:37 AM Reporting Lab: [address] [phone] Performing Lab: [address] [address] ALBUMIN 4.0 g/dL 3.5-4.8 ALKALINE PHOSPHATASE 63 [...] (CALCULATED) 74 Sep 05, 2024 09:[address] [facility] HEMOGLOBIN A1C BLOOD Specimen Type: B [...] Sep 05, 2024 09:37 AM Reporting Lab: [address] [phone] Performing Lab: [place] [phone] HEMOGLOBIN A1C 5.9 H 3.6-5.7 Sep 05, 2024 09:[address] [facility] TSH PLASMA Specimen Type: PLASMA Comment: [...] Sep 05, 2024 09:37 AM Reporting Lab: [address] [address] Performing Lab: [address] [address] TSH 0.236 u[IU]/mL L 0.350-4.940 Sep 05, 2024 09:[address] [facility] CBC BLOOD Specimen Type: BLOOD No comment entered. Ordering Provider: HORTENCIA BLANCO Report Released Date/Time: Sep 05, 2024 09:37 AM Reporting Lab: [address] [address] Performing Lab: [address] [address] WBC COUNT 8.2 10*3/uL 3.6-11.0 RBC COUNT [...] fL 7.4-11.4 Sep 05, 2024 12:[address] [facility] OCCULT BLOOD FIT X1 SCREEN (MFP ONLY) FECES Specimen Type: FECES No comment entered. Ordering Provider: HORTENCIA BLANCO Report Released Date/Time: Aug 03, 2024 02:14 PM Reporting Lab: [address] [address] Performing Lab: [address] [address] OCCULT BLOOD (FIT) #1 OF 1 Negative Nega tive Encounter Notes: All associated encounter notes This section contains the clinical notes associated to the Encounter. Date/Time Encounter Note(s) Provider Source Sep 13, 2024 01:09 PM NONVA NOTE: LOCAL TITLE: COMMUNITY CARE-CARE COORDINATION PLAN NOTE STANDARD TITLE: NONVA NOTE DATE OF NOTE: SEP 13, 2024@13:09 ENTRY DATE: SEP 13, 2024@13:10:14 AUTHOR: PRICE LEON EXP COSIGNER: URGENCY: STATUS: COMPLETED Community Care Consult: CARDIOLOGY- [id number] : Chief Complaint: arrhythmia- bradycardia, PVCs Patient Admitted? No Level of Care Coordination Complex/Chronic Care Coordination was determined from: Chart Review Facility Community Care Office Contact Care Coordination Point of Contact: COREY Mccullough Phone Number: [phone] Services: Moderate Care Coordination Services Case Management, if appropriate Direct communications with interdisciplinary team Plan: [place] Self Scheduling Referral Letter generated through [facility] and mailed to . Vet advised in letter to call with any additional questions/concerns related to this consult. Phone number to Call center and direct ext: provided to Vet. Staff will follow-up to alerts per vet or vendor to plan of care changes. RFS provided for additional care needed outside coverage of [facility]. Patient will be in contact with vendor for scheduling. /turner/ PRICE LEON REGISTERED NURSE Signed: 09/13/2024 13:[address] [facility]
--- OUTSIDE RECORDS SUMMARY | 2024-09-28 05:51 | XMS_ITS | Encounter Summary ---
Author Name [facility] Address [address] [place] [address] Care Team Providers Care Ip Technology Transactions Attorney Name Role Phone HORTENCIA BLANCO Primary Care [...] PART A Jul 02, 2022 PART A [id number] [id number] XANDER CARO JR IN PATIENT MEDICARE (WNR) MEDICARE (M) PART B Jul 02, 2022 PART B [id number] [id number] XANDER CARO JR IN PATIENT Selected Encounter This section includes the information on record at [place] for the Encounter. Date/Time Encounter Type Encounter Description Reason Provider Source Sep 28, 2024 09:51 AM Outpatient Encounter HT NON-VIDEO MONITORING ICD-10-CM Z03.89 Encntr for obs for oth suspected diseases and cond ruled out STACY HUGHES Abel Encounter Template Text not used by [place] Assessments - Encounter Diagnoses This section includes the primary and secondary diagnoses documented for the Encounter. Date/Time Primary/Secondary Diagnosis Diagnosis Name Provider Source Sep 28, 2024 10:14 AM PRIMARY Encntr for obs for oth suspected diseases and cond ruled out STACY HUGHES [facility] Sep 28, 2024 10:14 AM SECONDARY Essential (primary) hypertension STACY HUGHES [facility] Plan of Treatment: Future Appointments (+ 6 months) and Future Tests (+/- 45 days) The Plan of Treatment section includes future care activities for the patient [facility] [place] [facility] This section includes future appointments and future orders which are active, pending or scheduled. Future Appointments This section includes appointments that were scheduled to occur 6 months from the date of the Encounter, up to a maximum of 20 appointments. The data comes from all [facility]. Appointment Date/Time Appointment Type Appointme nt Facility Name October 07, 2024 08:00 AM AMBULATORY - NONE [facility] Mar 08, 2025 08:15 AM AMBULATORY - NONE [facility] Mar 14, 2025 08:30 AM AMBULATORY - NONE [facility] Active, Pending, and Scheduled Orders This section includes a listing of several types of active, pending, and scheduled orders, including clinic medications orders, diagnostic test orders, procedure orders and consult orders; where the start date of the order is 45 days before the date of the Encounter or 45 days after the date of theEncounter. The data comes from all [facility]. Test Date/Time Test Type Test Details Facility Name Sep 05, 2024 12:00 AM Laboratory - Chemi stry Order URINALYSIS URINE SP ONCE [facility] Sep 21, 2024 12:00 AM Laboratory - Chemi stry Order LIPID PROFILE LT GREEN PLASMA SP ONCE [facility] Sep 21, 2024 12:00 AM Laboratory - Chemi stry Order HEMOGLOBIN A1C LAVENDER BLOOD SP ONCE [facility] Sep 21, 2024 12:00 AM Laboratory - Chemi stry Order TSH LT GREEN PLASMA SP ONCE [facility] Sep 21, 2024 12:00 AM Laboratory - Chemi stry Order CBC LAVENDER BLOOD SP ONCE [facility] Sep 21, 2024 12:00 AM Laboratory - Chemi stry Order FREE T4 LT GREEN PLASMA SP ONCE [facility] Sep 21, 2024 12:00 AM Laboratory - Chemi stry Order URINALYSIS URINE SP ONCE [facility] Sep 21, 2024 12:00 AM Laboratory - Chemi stry Order COMPREHENSIVE METABOLIC PANEL LT GREEN PLASMA SP ONCE [facility] Lab Results: +/- 30 days of the [...] Type Comment Sep 05, 2024 09:29 AM [facility] FREE T4 PLASMA Specimen Type: PLASMA Comment: [...] Sep 05, 2024 09:37 AM Reporting Lab: [address] [address] Performing Lab: [address] [address] FREE T4 1.22 ng/dL 0.70-1.48 Sep 05, 2024 09:29 AM [facility] LIPID PROFILE PLASMA Specimen Type: P LASMA [...] Sep 05, 2024 09:37 AM Reporting Lab: [address] [address] Performing Lab: [address] [address] CHOLESTEROL 118 mg/dL 0-199 LDL CHOLESTEROL 78 mg/dL 0-99 HDL CHOLESTEROL 35 mg/dL L >40 TRIGLYCERIDE 48 mg/dL 0-149 Sep 05, 2024 09:29 AM [facility] COMPREHENSIVE METABOLIC PANEL PLASMA S pecimen Type: [...] Sep 05, 2024 09:37 AM Reporting Lab: [address] [address] Performing Lab: [address] [address] ALBUMIN 4.0 g/dL 3.5-4.8 ALKALINE PHOSPHATASE 63 [...] (CALCULATED) 74 Sep 05, 2024 09:29 AM [facility] HEMOGLOBIN A1C BLOOD Specimen Type: B LOOD [...] Sep 05, 2024 09:37 AM Reporting Lab: [place] [phone] Performing Lab: [place] [phone] HEMOGLOBIN A1C 5.9 H 3.6-5.7 Sep 05, 2024 09:29 AM [facility] TSH PLASMA Specimen Type: PLASMA Comment: GLUCOSE [...] Sep 05, 2024 09:37 AM Reporting Lab: [address] [address] Performing Lab: [place] [phone] TSH 0.236 u[IU]/mL L 0.350-4.940 Sep 05, 2024 09:29 AM [facility] CBC BLOOD Specimen Type: BLOOD No comment entered. Ordering Provider: HORTENCIA BLANCO Report Released Date/Time: Sep 05, 2024 09:37 AM Reporting Lab: [place] [phone] Performing Lab: [place] [phone] WBC COUNT 8.2 10*3/uL 3.6-11.0 RBC COUNT [...] fL 7.4-11.4 Sep 05, 2024 12:00 AM [facility] OCCULT BLOOD FIT X1 SCREEN (MFP ONLY) FECES Specimen Type: FECES No comment entered. Ordering Provider: HORTENCIA BLANCO Report Released Date/Time: Aug 03, 2024 02:14 PM Reporting Lab: [place] [phone] Performing Lab: [place] [phone] OCCULT BLOOD (FIT) #1 OF 1 Negative Nega tive Encounter Notes: All associated encounter notes This section contains the clinical notes associated to the Encounter. Date/Time Encounter Note(s) Provider Source Sep 28, 2024 10:05 AM CARE COORDINATION HOME TELEHEALTH SUMMARIZATION NOTE: LOCAL TITLE: HT MONTHLY MONITOR NOTE STANDARD TITLE: CARE COORDINATION HOME TELEHEALTH SUMMARIZATION DATE OF NOTE: SEP 28, 2024@10:05 ENTRY DATE: SEP 28, 2024@10:06:08 AUTHOR: ROGER HUGHES EXP COSIGNER: URGENCY: STATUS: COMPLETED The is enrolled in the Home Telehealth (HT) program and continues to be monitored via HT technology. The data sent by the is reviewed and analyzed by the HT staff, who provide ongoing case management and health education while communicating and collaborating with the health care team as appropriate. This note covers a total of 30 minutes for the month monitored. Month monitored: August 2024 /turner/ ROGER HUGHES REGISTERED NURSE Signed: 09/28/2024 10:41 ROGER HUGHES [facility]
--- OUTSIDE RECORDS SUMMARY | 2025-01-04 04:45 | XMS_ITS | Encounter Summary ---
Author Name [facility] [place] [facility] Address [address] [place] [id number] Care Team Providers Care Asbestos Remover Name Role Phone HORTENCIA BLANCO Primary Care [...] PART A Jul 02, 2022 PART A [id number] XANDER CARO JR IN PATIENT MEDICARE (WNR) MEDICARE ([place]) PART B Jul 02, 2022 PART B [id number] XANDER CARO JR IN PATIENT Selected Encounter This section includes the information on record at [place] for the Encounter. Date/Time Encounter Type Encounter Description Reason Provider Source Jan 04, 2025 08:45 AM PH1 ASSMT&MGMT NQHP -20 TELEPHONE BY HT STAFF ICD-10-CM I10 Essential (primary) hypertension LEONIDAS ROMERO Abel Encounter Template Text not used by [place] Assessments - Encounter Diagnoses This section includes the primary and secondary diagnoses documented for the Encounter. Date/Time Primary/Secondary Diagnosis Diagnosis Name Provider Source Jan 04, 2025 08:45 AM PRIMARY Essential (primary) hypertension GALLO ROMERO [facility] Jan 04, 2025 08:45 AM SECONDARY Encntr for obs for oth suspected diseases and cond ruled out GALLO ROMERO [facility] Plan of Treatment: Future Appointments (+ 6 months) and Future Tests (+/- 45 days) The Plan of Treatment section includes future care activities for the patient from all [place] treatmentfacilities. This section includes future appointments and future orders which are active, pending or scheduled. Future Appointments This section includes appointments that were scheduled to occur 6 months from the date of the Encounter, up to a maximum of 20 appointments. The data comes from all [place] treatment facilities. Appointment Date/Time Appointment Type Appointme nt Facility Name Mar 08, 2025 08:15 AM AMBULATORY - NONE [facility] Mar 14, 2025 08:30 AM AMBULATORY - NONE MECHELLE Rodrigues [facility] Encounter Notes: All associated encounter notes This section contains the clinical notes associated to the Encounter. Date/Time Encounter Note(s) Provider Source Jan 04, 2025 08:45 AM CARE COORDINATION HOME TELEHEALTH FOLLOW-UP NOTE: LOCAL TITLE: HT INTERVENTION NOTE STANDARD TITLE: CARE COORDINATION HOME TELEHEALTH FOLLOW-UP NOTE DATE OF NOTE: JAN 04, 2025@08:45 ENTRY DATE: JAN 04, 2025@08:45:43 AUTHOR: KRYS ROMERO COSIGNER: URGENCY: STATUS: COMPLETED is actively enrolled in the Home Telehealth program. Review of data shows the following out of range responses: Alerts Report Date Range: 01/03/2025 Days: 1 DMP Response Rate: 06/01 (100.0%) NR: 0, Partial: 0, Full: 1 In the past month would you say you are feeling more sad than usual? yes How long have you felt this way? A day or two Measurements: Patient Name: BRYANT CARO Disease(s): Hypertension Date Range: 12/21/2024 - 01/04/2025 [facility] Vitals Report Reading Date Sys/Joann BP-HR 01/03/25 120/62 (19:34) 44 (19:34) 01/02/25 119/68 (19:06) 45 (19:06) 01/01/25 116/64 (18:59) 44 (18:59) 12/31/24 103/69 (21:46) 43 (21:46) 12/30/24 104/57 (19:27) 48 (19:27) 12/30/24 107/56 (19:26) 78 (19:26) 12/29/24 112/72 (21:38) 41 (21:38) 12/28/24 110/62 (17:51) 43 (17:51) 12/27/24 119/69 (17:47) 41 (17:47) 12/27/24 135/68 (17:43) 41 (17:43) 12/26/24 106/61 (19:13) 41 (19:13) 12/25/24 108/63 (18:12) 41 (18:12) 12/24/24 112/67 (17:49) 43 (17:49) 12/23/24 117/63 (19:01) 43 (19:01) 12/22/24 118/61 (19:02) 43 (19:02) 12/21/24 115/58 (21:14) 43 (21:14) Blood Pressure Readings: Date 04:00-12:00 12:00-18:00 18:00-04:00 01/03/25 120/62 44(19:34) 01/02/25 119/68 45(19:06) 01/01/25 116/64 44(18:59) 12/31/24 103/69 43(21:46) 12/30/24 104/57 48(19:27) 107/56 78(19:26) 12/29/24 112/72 41(21:38) 12/28/24 110/62 43(17:51) 12/27/24 119/69 41(17:47) 135/68 41(17:43) 12/26/24 106/61 41(19:13) 12/25/24 108/63 41(18:12) 12/24/24 112/67 43(17:49) 12/23/24 117/63 43(19:01) 12/22/24 118/61 43(19:02) 12/21/24 115/58 43(21:14) [facility] Average Report Sys/Joann BP-HR Average 114/64 45 High 135/72 78 Low 103/56 41 Blood Pressure Summary: 04:00-12:00 12:00-18:00 18:00-04:00 Average 119/66 42 112/63 46 High 135/69 43 120/72 78 Low 110/62 41 103/56 41 Additional information: Mar@08:15 [facility] Mar@08:30 ROBB PACT 5 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 Babatunde has never had any type of surgery in his life and is a bit anxious but assured group underwriter he is ok . They are going to zap me back in rhythm or something like that . Babatunde reports now being fine with outside institutional asset manager and reports they now have a better understanding and they've got everything straight for now . babatunde denies needing anything from this group underwriter or service at this time denies the need for an apt with MH Intervention(s)/Plan: - call group underwriter if any concerns, contact number provided - appts reviewed with cg - advised to practice mindfulness and breath work to calm self - continue daily use of HT equipment. - seek medical attention with any new or worsening symptoms. - reviewed safety measures with slow positional change - reviewed s/s warranting 911, not to drive (CVA/IA) - CC to continue to assess and intervene. TYPE OF ENCOUNTER: Telephone - 11 minutes Covering for A Consul RN /turner/ KRYS ROMERO REGISTERED NURSE Signed: 01/04/2025 09:13 KRYS ROMERO [facility]
--- OUTSIDE RECORDS SUMMARY | 2025-01-11 02:54 | XMS_ITS | Continuity of Care Document ---
Author Name [facility] Organization [facility] Care Team Providers Care System Specialist Name Role Phone [facility] Unavailable Unavailable Problems Combined list of problems from [facility] and [facility] facilities. It does not include entries that were removed or entered in error. Problem Status Onset Date Problem Type Date of Resolution Comments Source Anxiety Active Condition [facility] CAD - Coronary Artery Disease ([facility] [id number]) Active Condition [facility] Dyslipidemia Active Condition [facility] ECG: premature ventricular contractions Active Condition [facility] Essential hypertension Active Condition [facility] GERD - Gastro-Esophageal Reflux Disease ([facility] [id number]) Active Condition [facility] Hypomagnesemia Active Condition [facility] Hypothyroidism Active Condition [facility] Pain radiating to right shoulder Active Condition [facility] Diagnosis: ICD-10-CM I10 Essential (primary) hypertension Active Diagnosis [facility] Diagnosis: ICD-10-CM Z03.89 Encntr for obs for oth suspected diseases and cond ruled out Active Diagnosis [facility] Diagnosis: ICD-10-CM R94.31 Abnormal electrocardiogram [ECG] [EKG] Active Diagnosis [facility] Diagnosis: ICD-10-CM R10.13 Epigastric pain Active Diagnosis [facility] Diagnosis: ICD-10-CM E83.42 Hypomagnesemia Active Diagnosis [facility] Diagnosis: ICD-10-CM K21.9 Gastro-esophageal reflux disease without esophagitis Active Diagnosis [facility] Diagnosis: ICD-10-CM R10.9 Unspecified abdominal pain Active Diagnosis [facility] Medications Combined list of outpatient medications from [facility] and [facility] facilities.Medications provided include 1) outpatient medications from the last 15 months, and 2) patient-reported medications. Medication Details Route Status Patient Instructions Prescription Expires Prescription Number Last Dispense Date Ordering Provider Order Date Order Qty Source AMLODIPINE BESYLATE 10MG TAB TAKE ONE TABLET BY MOUTH EVERY DAY ORAL DISCONT INUED BY PROVIDE R 03/11/2025 [id number] 5 BELLA,RE THEO A 2023 90 [facility] AMLODIPINE BESYLATE 10MG TAB TAKE ONE TABLET BY MOUTH EVERY DAY ORAL DISCONT INUED 03/18/2024 [id number] 4 BELLA,RE THEO A 2022 90 [facility] AMLODIPINE BESYLATE 5MG TAB TAKE ONE TABLET BY MOUTH EVERY DAY FOR HIGH BLOOD PRESSURE ORAL ACTIVE 08/19/2025 [id number] 5 BELLA,RE THEO A 2024 90 [facility] ATORVASTATI N CA 20MG TAB TAKE ONE TABLET BY MOUTH AT BEDTIME ORAL ACTIVE 03/24/2025 [id number] 5 BELLA,RE THEO A 2023 90 [facility] ATORVASTATI N CA 20MG TAB TAKE ONE TABLET BY MOUTH AT BEDTIME ORAL DISCONT INUED 03/11/2025 [id number] 4 BELLA,RE THEO A 2023 90 [facility] ATORVASTATI N CA 20MG TAB TAKE ONE TABLET BY MOUTH AT BEDTIME ORAL DISCONT INUED 03/18/2024 [id number] BELLA,RE THEO A 2022 90 [facility] BUPROPION HCL 300MG 24HR TAB,SA TAKE ONE TABLET BY MOUTH EVERY DAY ORAL ACTIVE 03/24/2025 [id number] 5 BELLA,RE THEO A 2023 90 [facility] BUPROPION HCL 300MG 24HR TAB,SA TAKE ONE TABLET BY MOUTH EVERY DAY ORAL DISCONT INUED 03/18/2024 [id number] 4 BELLA,RE THEO A 2022 90 [facility] DICLOFENAC NA 1% GEL,TOP APPLY 2GM MEASURED ON DOSING CARD EXTERNAL LY TWICE A DAY (GENTLY MASSAGE INTO SKIN) *FLAMMAB LE: KEEP AWAY FROM HEAT AND FLAMES* RIGHT SHOULDER TOPICA L ACTIVE 09/13/2025 [id number] 5 BELLA,RE THEO A 2024 100 [facility] DICLOFENAC NA 1% GEL,TOP APPLY 2GM MEASURED ON DOSING CARD EXTERNAL LY TWICE A DAY (GENTLY MASSAGE INTO SKIN) *FLAMMAB LE: KEEP AWAY FROM HEAT AND FLAMES* RIGHT SHOULDER TOPICA L DISCONT INUED 09/21/2024 [id number] 4 BELLA,RE HTEO A 2023 100 [facility] IBUPROFEN 800MG TAB TAKE ONE TABLET BY MOUTH THREE TIMES A DAY NEEDED FOR PAIN (TAKE WITH FOOD) ORAL ACTIVE 03/29/2025 [id number] 5 BELLA,RE THEO A 2023 90 [facility] LEVOTHYROXI NE NA 75MCG TAB TAKE ONE TABLET BY MOUTH EVERY MORNING, ON AN EMPTY STOMACH 30-60 MINUTES BEFORE BREAKFAS T ORAL ACTIVE 09/13/2025 [id number] 5 BELLA,RE THEO A 2024 90 [facility] LEVOTHYROXI NE NA 75MCG TAB TAKE ONE TABLET BY MOUTH EVERY MORNING, ON AN EMPTY STOMACH 30-60 MINUTES BEFORE BREAKFAS T ORAL DISCONT INUED 03/24/2025 [id number] 5 BELLA,RE THEO A 2023 90 [facility] LEVOTHYROXI NE NA 75MCG TAB (SYNTHROID) TAKE ONE TABLET BY MOUTH EVERY MORNING, ON AN EMPTY STOMACH 30-60 MINUTES BEFORE BREAKFAS T ORAL DISCONT INUED 03/18/2024 [id number] 4 BELLA,RE THEO A 2022 90 [facility] METOPROLOL SUCCINATE 50MG TAB,SA TAKE ONE TABLET BY MOUTH EVERY DAY ORAL ACTIVE BELLA,RE THEO A 2023 [facility] NITROGLYCER IN 0.4MG TAB,SUBLING UAL DISSOLVE ONE TABLET UNDER THE TONGUE NEEDED FOR ACUTE ATTACK OF ANGINA - IF CHEST PAIN IS NOT IMPROVED 5 MINUTES AFTER TAKING 1 TABLET, CALL 911 STORE IN ORIGINAL CONTAINE R SUBLIN GUAL ACTIVE 12/17/2025 [id number] 5 BELLA,RE THEO A 2024 100 [facility] NITROGLYCER IN 0.4MG TAB,SUBLING UAL DISSOLVE ONE TABLET UNDER THE TONGUE PRN SUBLIN GUAL ACTIVE BELLA,RE THEO A 2020 [facility] OMEPRAZOLE 20MG CAP,EC TAKE ONE CAPSULE BY MOUTH EVERY MORNING, ON AN EMPTY STOMACH FOR INDIGEST ION ORAL ACTIVE 06/16/2025 [id number] 5 DAVID BLANCO THEO A 2024 90 [facility] OMEPRAZOLE 20MG CAP,EC TAKE ONE CAPSULE BY MOUTH EVERY MORNING, ON AN EMPTY STOMACH FOR INDIGEST ION ORAL DISCONT INUED 02/16/2025 [id number] 5 DAVID BLANCO THEO A 2023 90 [facility] OMEPRAZOLE 20MG CAP,EC TAKE ONE CAPSULE BY MOUTH EVERY MORNING, ON AN EMPTY STOMACH FOR INDIGEST ION ORAL DISCONT INUED 07/17/2024 [id number] DAVID BLANCO THEO A 2023 90 [facility] Allergies, Adverse Reactions, Alerts Combined list of allergies from [facility] of Defense and Veterans Affairs facilities. It does not include entries that were removed or entered in error. Substance Category Reaction Severity Reaction type Status Date Reported Comments Source PENICILLIN Propensity to adverse reactions to drug (finding) Anaphylaxis active 1 [facility] Immunizations Combined list of available immunizations from the Department of [facility] and Veterans Affairs facilities. Immunization Series Date Given Administered By Site Reaction Lot Number CVX Code Drug Glazing Department Supervisor Status Comments Source RSV, BIVALENT, PROTEIN SUBUNIT RSVPREF, DILUENT RECONSTITUTED , 0.5 ML, PF 2023 MAICO GIL RIGHT DELTO ID [id number] 305 complet ed [facility] AT [facility] TDAP 1 2023 115 complet ed HISTORICA L INFORMATI ON - FROM OTHER REGISTRY, [facility] COVID-19 (PFIZER), MRNA, LNP-S, PF, ENE-SUCROSE, 30 MCG/0.3 ML (AGES 12+ YEARS) 2023 MAICO GIL LEFT DELTO ID [id number] 309 complet ed [facility], [facility] INFLUENZA, HIGH-DOSE, TRIVALENT, PF 2023 MAICO GIL RIGHT [place] ID [id number] 135 complet ed [facility] AT [facility] INFLUENZA, HIGH-DOSE, QUADRIVALENT 2022 MAICO GIL LEFT [place] ID [id number] 197 complet ed [facility] [place], [facility] COVID-19 (PFIZER), MRNA, LNP-S, PF, ENE-SUCROSE, 30 MCG/0.3 ML (AGES 12+ YEARS) 1 2022 MAICO GIL RIGHT DELTO ID [id number] 309 complet ed [facility] [place], [facility] TDAP 2022 MAICO GIL LEFT [place] ID [id number] 115 complet ed [place], [facility] INFLUENZA, INJECTABLE, QUADRIVALENT, PRESERVATIVE FREE 2021 150 complet ed [facility] ZOSTER RECOMBINANT 2021 187 complet ed [facility] COVID-19 (PFIZER), MRNA, LNP-S, BIVALENT, PF, 30 MCG/0.3 ML DOSE 4 2021 300 complet ed HISTORICA L INFORMATI ON - FROM OTHER REGISTRY, [facility] COVID-19 (PFIZER), MRNA, LNP-S, BIVALENT BOOSTER, PF, 30 MCG/0.3 ML DOSE 1 2021 300 complet ed HISTORICA L INFORMATI ON - FROM PATIENT'S WRITTEN RECORD, [facility] PNEUMOCOCCAL CONJUGATE PCV20, POLYSACCHARID E [id number] CONJUGATE, ADJUVANT, PF 2021 216 complet ed [facility] ZOSTER RECOMBINANT 2021 187 complet ed [facility] COVID-19 (MODERNA), MRNA, LNP-S, PF, 100 MCG/0.5ML DOSE OR 50 MCG/0.25ML DOSE 3 2021 207 complet ed [facility] COVID-19 (MODERNA), MRNA, LNP-S, PF, 100 MCG/0.5 ML DOSE 2 2020 207 complet ed [facility] COVID-19 (MODERNA), MRNA, LNP-S, PF, 100 MCG/0.5 ML DOSE 1 2020 207 complet ed [facility] Results Combined list of recent chemistry, hematology and other laboratory results from Department of Defense and Veterans Affairs, ranging from 15 months to all on record, depending upon the facility. Order Name Results Value Reference Range Date Interpretation Specimen Comments Source FREE T4 THYROXINE (T4) FREE [MASS/VOLU ME] IN SERUM OR PLASMA 1.22 ng/dL 0.70 - 1.48 09/05 Specimen Type: PLASMA Comment: GLUCOSE The ADA [...] 160-189 mg/dL VERY HIGH: >=190 Ordering Provider: MARIAN BLANCO CCA Report Released Date/Time: Sep 05, 2024 09:37 AM Reporting Lab: [address] [phone] Performing Lab: [place] [phone] [facility] LIPID PROFILE CHOLESTERO L [MASS/VOLU ME] IN SERUM OR PLASMA 118 mg/dL 0 - 199 09/05 Specimen Type: PLASMA Comment: GLUCOSE The ADA [...] 160-189 mg/dL VERY HIGH: >=190 Ordering Provider: MARIAN BLANCO CCA Report Released Date/Time: Sep 05, 2024 09:37 AM Reporting Lab: [place] [phone] Performing Lab: [place] [phone] [facility] LIPID PROFILE CHOLESTERO L IN LDL [MASS/VOLU ME] IN SERUM OR PLASMA BY DIRECT ASSAY 78 mg/dL 0 - 99 09/05 Specimen Type: PLASMA Comment: GLUCOSE The ADA [...] 160-189 mg/dL VERY HIGH: >=190 Ordering Provider: MARIAN BLANCO CCA A Report Released Date/Time: Sep 05, 2024 09:37 AM Reporting Lab: [place] [phone] Performing Lab: [place] [phone] [facility] LIPID PROFILE CHOLESTERO L IN HDL [MASS/VOLU ME] IN SERUM OR PLASMA 35 mg/dL 40 09/05 L Specimen Type: PLASMA Comment: GLUCOSE The ADA [...] 160-189 mg/dL VERY HIGH: >=190 Ordering Provider: MARIAN BLANCO CCA A Report Released Date/Time: Sep 05, 2024 09:37 AM Reporting Lab: [place] [phone] Performing Lab: [place] [phone] [facility] LIPID PROFILE TRIGLYCERI DE [MASS/VOLU ME] IN SERUM OR PLASMA 48 mg/dL 0 - 149 09/05 Specimen Type: PLASMA Comment: GLUCOSE The ADA [...] 160-189 mg/dL VERY HIGH: >=190 Ordering Provider: MARIAN BLANCO CCA A Report Released Date/Time: Sep 05, 2024 09:37 AM Reporting Lab: [place] [phone] Performing Lab: [place] [phone] [facility] COMPREHE NSIVE METABOLI C PANEL ALBUMIN [MASS/VOLU ME] IN SERUM OR PLASMA 4.0 g/dL 3.5 - 4.8 09/05 Specimen Type: PLASMA Comment: GLUCOSE The ADA [...] 160-189 mg/dL VERY HIGH: >=190 Ordering Provider: MARIAN BLANCO CCA Report Released Date/Time: Sep 05, 2024 09:37 AM Reporting Lab: [place] [phone] Performing Lab: [place] [phone] COMPREHE NSIVE METABOLI C PANEL ALKALINE PHOSPHATAS E [ENZYMATIC ACTIVITY/V OLUME] IN SERUM OR PLASMA 63 U/L 40 - 150 09/05 Specimen Type: PLASMA Comment: GLUCOSE The ADA [...] 160-189 mg/dL VERY HIGH: >=190 Ordering Provider: MARIAN BLANCO CCA Report Released Date/Time: Sep 05, 2024 09:37 AM Reporting Lab: [place] [phone] Performing Lab: [address] [phone] [facility] NSIVE METABOLI C PANEL ALANINE AMINOTRANS FERASE [ENZYMATIC ACTIVITY/V OLUME] IN SERUM OR PLASMA 35 U/L 0 - 55 09/05 Specimen Type: PLASMA Comment: GLUCOSE The ADA [...] 160-189 mg/dL VERY HIGH: >=190 Ordering Provider: MARIAN BLANCO CCA Report Released Date/Time: Sep 05, 2024 09:37 AM Reporting Lab: [place] [phone] Performing Lab: [place] [phone] [place] [address] NSIVE METABOLI C PANEL ASPARTATE AMINOTRANS FERASE [ENZYMATIC ACTIVITY/V OLUME] IN SERUM OR PLASMA 24 U/L 10 - 40 09/05 Specimen Type: PLASMA Comment: GLUCOSE The ADA [...] 160-189 mg/dL VERY HIGH: >=190 Ordering Provider: MARIAN BLANCO CCA Report Released Date/Time: Sep 05, 2024 09:37 AM Reporting Lab: [address] [phone] Performing Lab: [place] [phone] [facility] COMPREHE NSIVE METABOLI C PANEL UREA NITROGEN [MASS/VOLU ME] IN SERUM OR PLASMA 15.6 mg/dL 8.4 - 25.7 09/05 Specimen Type: PLASMA Comment: GLUCOSE The ADA [...] 160-189 mg/dL VERY HIGH: >=190 Ordering Provider: MARIAN BLANCO CCA Report Released Date/Time: Sep 05, 2024 09:37 AM Reporting Lab: [address] [phone] Performing Lab: [address] [phone] [facility] COMPREHE NSIVE METABOLI C PANEL CALCIUM [MASS/VOLU ME] IN SERUM OR PLASMA 9.0 mg/dL 8.6 - 10.3 09/05 Specimen Type: PLASMA Comment: GLUCOSE The ADA [...] 160-189 mg/dL VERY HIGH: >=190 Ordering Provider: MARIAN BLANCO CCA A Report Released Date/Time: Sep 05, 2024 09:37 AM Reporting Lab: [place] [phone] Performing Lab: [address] COMPREHE NSIVE METABOLI C PANEL CREATININE [MASS/VOLU ME] IN SERUM OR PLASMA 1.1 mg/dL 0.7 - 1.3 09/05 Specimen Type: PLASMA Comment: GLUCOSE The ADA [...] 160-189 mg/dL VERY HIGH: >=190 Ordering Provider: MARIAN BLANCO CCA Report Released Date/Time: Sep 05, 2024 09:37 AM Reporting Lab: [place] [phone] Performing Lab: [place] [phone] COMPREHE NSIVE METABOLI C PANEL CARBON DIOXIDE, TOTAL [MOLES/VOL UME] IN SERUM OR PLASMA 25 mmol/L 22 - 30 09/05 Specimen Type: PLASMA Comment: GLUCOSE The ADA [...] 160-189 mg/dL VERY HIGH: >=190 Ordering Provider: MARIAN BLANCO CCA Report Released Date/Time: Sep 05, 2024 09:37 AM Reporting Lab: [place] [phone] Performing Lab: [place] [phone] [facility] COMPREHE NSIVE METABOLI C PANEL GLUCOSE [MASS/VOLU ME] IN SERUM OR PLASMA 112 mg/dL 74 - 99 09/05 H Specimen Type: PLASMA Comment: GLUCOSE The ADA [...] 160-189 mg/dL VERY HIGH: >=190 Ordering Provider: MARIAN BLANCO CCA Report Released Date/Time: Sep 05, 2024 09:37 AM Reporting Lab: [place] [phone] Performing Lab: [place] [phone] [place] [address] COMPREHE NSIVE METABOLI C PANEL PROTEIN [MASS/VOLU ME] IN SERUM OR PLASMA 6.8 g/dL 6.4 - 8.3 09/05 Specimen Type: PLASMA Comment: GLUCOSE The ADA [...] 160-189 mg/dL VERY HIGH: >=190 Ordering Provider: MARIAN BLANCO CCA Report Released Date/Time: Sep 05, 2024 09:37 AM Reporting Lab: [place] [phone] Performing Lab: [place] [phone] COMPREHE NSIVE METABOLI C PANEL SODIUM [MOLES/VOL UME] IN SERUM OR PLASMA 136 mmol/L 134 - 144 09/05 Specimen Type: PLASMA Comment: GLUCOSE The ADA [...] 160-189 mg/dL VERY HIGH: >=190 Ordering Provider: MARIAN BLANCO CCA Report Released Date/Time: Sep 05, 2024 09:37 AM Reporting Lab: [place] [phone] Performing Lab: [place] [phone] [facility] COMPREHE NSIVE METABOLI C PANEL CHLORIDE [MOLES/VOL UME] IN SERUM OR PLASMA 106 mmol/L 99 - 112 09/05 Specimen Type: PLASMA Comment: GLUCOSE The ADA [...] 160-189 mg/dL VERY HIGH: >=190 Ordering Provider: MARIAN BLANCO CCA Report Released Date/Time: Sep 05, 2024 09:37 AM Reporting Lab: [address] [phone] Performing Lab: [place] [phone] [facility] COMPREHE NSIVE METABOLI C PANEL BILIRUBIN. TOTAL [MASS/VOLU ME] IN SERUM OR PLASMA 1.1 mg/dL 0.2 - 1.2 09/05 Specimen Type: PLASMA Comment: GLUCOSE The ADA [...] 160-189 mg/dL VERY HIGH: >=190 Ordering Provider: MARIAN BLANCO CCA Report Released Date/Time: Sep 05, 2024 09:37 AM Reporting Lab: [place] [phone] Performing Lab: [place] [phone] [facility] [employer] NSIVE METABOLI C PANEL POTASSIUM [MOLES/VOL UME] IN SERUM OR PLASMA 5.1 mmol/L 3.5 - 5.1 09/05 Specimen Type: PLASMA Comment: GLUCOSE The ADA [...] 160-189 mg/dL VERY HIGH: >=190 Ordering Provider: MARIAN BLANCO CCA Report Released Date/Time: Sep 05, 2024 09:37 AM Reporting Lab: [address] [phone] Performing Lab: [place] [phone] [facility] COMPREHE NSIVE METABOLI C PANEL ANION GAP IN SERUM OR PLASMA 10 mmol/L 10 - 20 09/05 Specimen Type: PLASMA Comment: GLUCOSE The ADA [...] 160-189 mg/dL VERY HIGH: >=190 Ordering Provider: MARIAN BLANCO CCA Report Released Date/Time: Sep 05, 2024 09:37 AM Reporting Lab: [address] [phone] Performing Lab: [address] [phone] [facility] [employer] NSIVE METABOLI C PANEL GLOMERULAR FILTRATION RATE/1.73 SQ M.PREDICTE D [VOLUME RATE/AREA] IN SERUM, PLASMA OR BLOOD BY CREATININE -BASED FORMULA (CKD-EPI 2020) 74 09/05 Specimen Type: PLASMA Comment: GLUCOSE The ADA [...] 160-189 mg/dL VERY HIGH: >=190 Ordering Provider: MARIAN BLANCO CCA Report Released Date/Time: Sep 05, 2024 09:37 AM Reporting Lab: [place] [phone] Performing Lab: [place] [phone] [facility] HEMOGLOB IN A1C HEMOGLOBIN A1C/HEMOGL OBIN.TOTAL IN BLOOD 5.9 3.6 - 5.7 09/05 H Specimen Type: BLOOD Comment: Values obtained from A1C measurement s can vary. For typical A1C assays, a reported value of 7.0 could actually be between 6.72 and 7.28 if measured by a reference method. A reported value of 9.0 could actually be between 8.73 and 9.27. Ref: http://www. ngsp.org/CA Pdata.asp Ordering Provider: MARIAN BLANCO CCA Report Released Date/Time: Sep 05, 2024 09:37 AM Reporting Lab: [place] [phone] Performing Lab: [place] [phone] [facility] TSH THYROTROPI N [UNITS/VOL UME] IN SERUM OR PLASMA BY DETECTION LIMIT <= 0.005 MIU/L 0.236 u[IU]/mL 0.350 - 4.940 09/05 L Specimen Type: PLASMA Comment: GLUCOSE The ADA [...] 160-189 mg/dL VERY HIGH: >=190 Ordering Provider: MARIAN BLANCO CCA A Report Released Date/Time: Sep 05, 2024 09:37 AM Reporting Lab: [place] [phone] Performing Lab: [place] [phone] [facility] CBC LEUKOCYTES [#/VOLUME] IN BLOOD BY AUTOMATED COUNT 8.2 10*3/uL 3.6 - 11.0 09/05 Specimen Type: BLOOD No comment entered. Ordering Provider: MARIAN BLANCO CCA A Report Released Date/Time: Sep 05, 2024 09:37 AM Reporting Lab: [address] [phone] Performing Lab: [place] [phone] [place] [address] CBC ERYTHROCYT ES [#/VOLUME] IN BLOOD BY AUTOMATED COUNT 5.15 10*6/uL 4.47 - 5.83 09/05 Specimen Type: BLOOD No comment entered. Ordering Provider: MARIAN BLANCO CCA A Report Released Date/Time: Sep 05, 2024 09:37 AM Reporting Lab: [place] [phone] Performing Lab: [place] [phone] [place] [address] CBC HEMOGLOBIN [MASS/VOLU ME] IN BLOOD 16.0 g/dL 13.6 - 17.4 09/05 Specimen Type: BLOOD No comment entered. Ordering Provider: MARIAN BLANCO CCA A Report Released Date/Time: Sep 05, 2024 09:37 AM Reporting Lab: [place] [phone] Performing Lab: [place] [phone] [facility] CBC HEMATOCRIT [VOLUME FRACTION] OF BLOOD BY AUTOMATED COUNT 46.5 40.0 - 51.0 09/05 Specimen Type: BLOOD No comment entered. Ordering Provider: MARIAN BLANCO CCA A Report Released Date/Time: Sep 05, 2024 09:37 AM Reporting Lab: [address] [address] Performing Lab: [place] [phone] [facility] CBC MCV [ENTITIC VOLUME] BY AUTOMATED COUNT 90.3 fL 80.0 - 96.0 09/05 Specimen Type: BLOOD No comment entered. Ordering Provider: MARIAN BLANCO CCA A Report Released Date/Time: Sep 05, 2024 09:37 AM Reporting Lab: [place] [phone] Performing Lab: [place] [phone] CBC MCH [ENTITIC MASS] BY AUTOMATED COUNT 31.0 pg 27.0 - 31.0 09/05 Specimen Type: BLOOD No comment entered. Ordering Provider: MARIAN BLANCO CCA A Report Released Date/Time: Sep 05, 2024 09:37 AM Reporting Lab: [place] [phone] Performing Lab: [place] [phone] CBC MCHC [MASS/VOLU ME] BY AUTOMATED COUNT 34.3 g/dL 31.5 - 36.5 09/05 Specimen Type: BLOOD No comment entered. Ordering Provider: MARIAN BLANCO CCA A Report Released Date/Time: Sep 05, 2024 09:37 AM Reporting Lab: [place] [phone] Performing Lab: [place] [phone] CBC PLATELETS [#/VOLUME] IN BLOOD BY AUTOMATED COUNT 225 10*3/uL 150 - 400 09/05 Specimen Type: BLOOD No comment entered. Ordering Provider: MARIAN BLANCO CCA A Report Released Date/Time: Sep 05, 2024 09:37 AM Reporting Lab: [place] [phone] Performing Lab: [place] [phone] [facility] CBC LYMPHOCYTE S/100 LEUKOCYTES IN BLOOD BY AUTOMATED COUNT 18.8 21.0 - 51.0 09/05 L Specimen Type: BLOOD No comment entered. Ordering Provider: MARIAN BLANCO CCA A Report Released Date/Time: Sep 05, 2024 09:37 AM Reporting Lab: [place] [phone] Performing Lab: [address] [phone] [facility] CBC MONOCYTES/ 100 LEUKOCYTES IN BLOOD BY AUTOMATED COUNT 11.6 4.0 - 8.0 09/05 H Specimen Type: BLOOD No comment entered. Ordering Provider: MARIAN BLANCO CCA A Report Released Date/Time: Sep 05, 2024 09:37 AM Reporting Lab: [address] [phone] Performing Lab: [place] [phone] [facility] CBC NUCLEATED ERYTHROCYT ES/100 LEUKOCYTES [RATIO] IN BLOOD BY MANUAL COUNT 0.1 /100{WBC s} 09/05 Specimen Type: BLOOD No comment entered. Ordering Provider: MARIAN BLANCO CCA A Report Released Date/Time: Sep 05, 2024 09:37 AM Reporting Lab: [address] [phone] Performing Lab: [place] [phone] [facility] CBC ERYTHROCYT E DISTRIBUTI ON WIDTH [RATIO] BY AUTOMATED COUNT 13.8 11.2 - 15.8 09/05 Specimen Type: BLOOD No comment entered. Ordering Provider: MARIAN BLANCO CCA A Report Released Date/Time: Sep 05, 2024 09:37 AM Reporting Lab: [address] [phone] Performing Lab: [place] [phone] [facility] CBC NEUTROPHIL S/100 LEUKOCYTES IN BLOOD BY AUTOMATED COUNT 66.8 54.0 - 78.0 09/05 Specimen Type: BLOOD No comment entered. Ordering Provider: MARIAN BLANCO CCA A Report Released Date/Time: Sep 05, 2024 09:37 AM Reporting Lab: [address] [phone] Performing Lab: [place] [phone] [facility] CBC EOSINOPHIL S/100 LEUKOCYTES IN BLOOD BY AUTOMATED COUNT 2.2 0.0 - 3.0 09/05 Specimen Type: BLOOD No comment entered. Ordering Provider: MARIAN BLANCO CCA A Report Released Date/Time: Sep 05, 2024 09:37 AM Reporting Lab: [address] [id number] Performing Lab: [address] [phone] [facility] CBC BASOPHILS/ 100 LEUKOCYTES IN BLOOD BY AUTOMATED COUNT 0.6 0.0 - 3.0 09/05 Specimen Type: BLOOD No comment entered. Ordering Provider: MARIAN BLANCO CCA A Report Released Date/Time: Sep 05, 2024 09:37 AM Reporting Lab: [address] [id number] Performing Lab: [place] [phone] [facility] [facility] CBC LYMPHOCYTE S [#/VOLUME] IN BLOOD BY AUTOMATED COUNT 1.5 10*3/uL 0.8 - 5.0 09/05 Specimen Type: BLOOD No comment entered. Ordering Provider: MARIAN BLANCO CCA A Report Released Date/Time: Sep 05, 2024 09:37 AM Reporting Lab: [place] [phone] Performing Lab: [place] [phone] [facility] CBC NEUTROPHIL S [#/VOLUME] IN BLOOD 5.5 10*3/uL 1.9 - 8.6 09/05 Specimen Type: BLOOD No comment entered. Ordering Provider: MARIAN BLANCO CCA A Report Released Date/Time: Sep 05, 2024 09:37 AM Reporting Lab: [address] [address] Performing Lab: [place] [phone] [facility] CBC BASOPHILS [#/VOLUME] IN BLOOD BY AUTOMATED COUNT 0.0 10*3/uL 0.0 - 0.3 09/05 Specimen Type: BLOOD No comment entered. Ordering Provider: MARIAN BLANCO CCA A Report Released Date/Time: Sep 05, 2024 09:37 AM Reporting Lab: [address] [phone] Performing Lab: [address] [address] [facility] CBC MONOCYTES [#/VOLUME] IN BLOOD BY AUTOMATED COUNT 0.9 10*3/uL 0.1 - 0.9 09/05 Specimen Type: BLOOD No comment entered. Ordering Provider: MARIAN BLANCO CCA A Report Released Date/Time: Sep 05, 2024 09:37 AM Reporting Lab: [place] [phone] Performing Lab: [place] [phone] CBC EOSINOPHIL S [#/VOLUME] IN BLOOD BY AUTOMATED COUNT 0.2 10*3/uL 0.0 - 0.3 09/05 Specimen Type: BLOOD No comment entered. Ordering Provider: MARIAN BLANCO CCA A Report Released Date/Time: Sep 05, 2024 09:37 AM Reporting Lab: [place] [phone] Performing Lab: [place] [phone] CBC PLATELET MEAN VOLUME [ENTITIC VOLUME] IN BLOOD BY AUTOMATED COUNT 8.3 fL 7.4 - 11.4 09/05 Specimen Type: BLOOD No comment entered. Ordering Provider: MARIAN BLANCO CCA A Report Released Date/Time: Sep 05, 2024 09:37 AM Reporting Lab: [place] [phone] Performing Lab: [place] [phone] OCCULT BLOOD FIT X1 SCREEN (MFP ONLY) HEMOGLOBIN .GASTROINT ESTINAL.LO WER [PRESENCE] IN STOOL BY IMMUNOASSA Y Negative 09/05 Specimen Type: FECES No comment entered. Ordering Provider: MARIAN BLANCO CCA A Report Released Date/Time: Aug 03, 2024 02:14 PM Reporting Lab: [place] [phone] Performing Lab: [place] [phone] AMYLASE AMYLASE [ENZYMATIC ACTIVITY/V OLUME] IN SERUM OR PLASMA 37 U/L 25 - 125 05/18 Specimen Type: PLASMA No comment entered. Ordering Provider: MARIAN BLANCO CCA A Report Released Date/Time: May 18, 2024 09:04 AM Reporting Lab: [place] [phone] Performing Lab: [place] [phone] [facility] LIPASE LIPASE [ENZYMATIC ACTIVITY/V OLUME] IN SERUM OR PLASMA 37 U/L <60 - 60 05/18 Specimen Type: PLASMA No comment entered. Ordering Provider: MARIAN BLANCO CCA Report Released Date/Time: May 18, 2024 09:04 AM Reporting Lab: [place] [phone] Performing Lab: [place] [phone] [place] [address] LIPID PROFILE CHOLESTERO L [MASS/VOLU ME] IN SERUM OR PLASMA 115 mg/dL <199 - 199 03/16 Specimen Type: PLASMA Comment: DLDLREF RANGE: NEAR OR ABOVE OPTIMAL: 100-129 mg/dL BORDERLINE DLDLHIGH: 130-159 mg/dL HIGH: 160-189 mg/dL VERY HIGH: >=190 TRIG REF RANGE: BORDERLINE HIGH: 150-199 mg/dL HIGH: 200-499 mg/dL TRIG VERY HIGH: >=500 mg/dL CREA eGFR was calculated using the CKD-EPI 2020 equation. CHOL REF RANGE: BORDERLINE HIGH: 200-239 mg/dL HIGH: >=240 mg/dL Ordering Provider: MARIAN BLANCO CCA Report Released Date/Time: Sep 21, 2023 01:23 PM Reporting Lab: [place] [phone] Performing Lab: [place] [phone] LIPID PROFILE CHOLESTERO L IN LDL [MASS/VOLU ME] IN SERUM OR PLASMA BY DIRECT ASSAY 73 mg/dL <99 - 99 03/16 Specimen Type: PLASMA Comment: DLDLREF RANGE: NEAR OR ABOVE OPTIMAL: 100-129 mg/dL BORDERLINE DLDLHIGH: 130-159 mg/dL HIGH: 160-189 mg/dL VERY HIGH: >=190 TRIG REF RANGE: BORDERLINE HIGH: 150-199 mg/dL HIGH: 200-499 mg/dL TRIG VERY HIGH: >=500 mg/dL CREA eGFR was calculated using the CKD-EPI 2020 equation. CHOL REF RANGE: BORDERLINE HIGH: 200-239 mg/dL HIGH: >=240 mg/dL Ordering Provider: MARIAN BLANCO CCA A Report Released Date/Time: Sep 21, 2023 01:23 PM Reporting Lab: [place] [phone] Performing Lab: [place] [phone] [facility] LIPID PROFILE CHOLESTERO L IN HDL [MASS/VOLU ME] IN SERUM OR PLASMA 38 mg/dL 60 03/16 L Specimen Type: PLASMA Comment: DLDLREF RANGE: NEAR OR ABOVE OPTIMAL: 100-129 mg/dL BORDERLINE DLDLHIGH: 130-159 mg/dL HIGH: 160-189 mg/dL VERY HIGH: >=190 TRIG REF RANGE: BORDERLINE HIGH: 150-199 mg/dL HIGH: 200-499 mg/dL TRIG VERY HIGH: >=500 mg/dL CREA eGFR was calculated using the CKD-EPI 2020 equation. CHOL REF RANGE: BORDERLINE HIGH: 200-239 mg/dL HIGH: >=240 mg/dL Ordering Provider: MARIAN BLANCO CCA Report Released Date/Time: Sep 21, 2023 01:23 PM Reporting Lab: [place] [phone] Performing Lab: [place] [phone] [facility] LIPID PROFILE TRIGLYCERI DE [MASS/VOLU ME] IN SERUM OR PLASMA 48 mg/dL <149 - 149 03/16 Specimen Type: PLASMA Comment: DLDLREF RANGE: NEAR OR ABOVE OPTIMAL: 100-129 mg/dL BORDERLINE DLDLHIGH: 130-159 mg/dL HIGH: 160-189 mg/dL VERY HIGH: >=190 TRIG REF RANGE: BORDERLINE HIGH: 150-199 mg/dL HIGH: 200-499 mg/dL TRIG VERY HIGH: >=500 mg/dL CREA eGFR was calculated using the CKD-EPI 2020 equation. CHOL REF RANGE: BORDERLINE HIGH: 200-239 mg/dL HIGH: >=240 mg/dL Ordering Provider: MARIAN BLANCO CCA Report Released Date/Time: Sep 21, 2023 01:23 PM Reporting Lab: [place] [phone] Performing Lab: [place] [phone] [facility] Vital Signs Combined list of inpatient and outpatient Vital Signs from Department of Defense and Veterans Affairs, ranging from 12 months to all on record, depending upon the facility. Vital Sign Value Date Comments Source SYSTOLIC BLOOD PRESSURE 133 09/12/2024 07:49:05 [facility] DIASTOLIC BLOOD PRESSURE 80 09/12/2024 07:49:05 [facility] PULSE OXIMETRY 97 09/12/2024 07:49:05 [facility] WEIGHT 158 09/12/2024 07:49:05 [facility] BMI 26 kg/m2 09/12/2024 07:49:05 [facility] PAIN 0 09/12/2024 07:49:05 [facility] TEMPERATURE 98.1 09/12/2024 07:49:05 [facility] PULSE 48 09/12/2024 07:49:05 [facility] RESPIRATION 16 09/12/2024 07:49:05 [facility] SYSTOLIC BLOOD PRESSURE 138 05/18/2024 08:25:57 [facility] DIASTOLIC BLOOD PRESSURE 82 05/18/2024 08:25:57 [facility] PULSE OXIMETRY 97 05/18/2024 08:25:57 [facility] WEIGHT 166 05/18/2024 08:25:57 [facility] BMI 28 kg/m2 05/18/2024 08:25:57 [facility] PAIN 0 05/18/2024 08:25:57 [facility] TEMPERATURE 98.6 05/18/2024 08:25:57 [facility] PULSE 65 05/18/2024 08:25:57 [facility] RESPIRATION 16 05/18/2024 08:25:57 [facility] SYSTOLIC BLOOD PRESSURE 138 03/23/2024 07:55:56 [facility] DIASTOLIC BLOOD PRESSURE 80 03/23/2024 07:55:56 [facility] PULSE OXIMETRY 97 03/23/2024 07:55:56 [facility] WEIGHT 163.5 03/23/2024 07:55:56 [facility] BMI 27 kg/m2 03/23/2024 07:55:56 [facility] PAIN 0 03/23/2024 07:55:56 [facility] TEMPERATURE 97.5 03/23/2024 07:55:56 [facility] PULSE 56 03/23/2024 07:55:56 [facility] RESPIRATION 16 03/23/2024 07:55:56 [facility] Encounters Combined list of: 1) Encounters from Department of Veterans Affairs facilities going backup to the last 18 months, not all VA inpatient encounters are included; 2) Encounters from the Department of Defense facilities going backup to 280 months. Location Location Details Encounter Type Encounter Number Reason For Visit Attending Provider ADM Date DC Date Status Disposition Source [facility] HC PRO PHONE CALL 5-10 MIN [id number] Diagnos is: ICD-10- CM R10.9 Unspeci fied abdomin al pain MADIHA MCKINLEY 07/15 [place] [facility] OFFICE O/P EST LOW 20 MIN [id number] Diagnos is: ICD-10- CM K21.9 Gastro- esophag eal reflux disease without esophag itis PEYTON BLANCO ECCA A 07/17 [place] [facility] Outpatient Encounter [id number] 09/[address] [facility] OFFICE O/P EST MOD 30 MIN [id number] Diagnos is: ICD-10- CM I10 Essenti al (primar y) hyperte nsion BELLAPEYTON ECCA A 09/20 [place] [facility] HC PRO PHONE CALL 5-10 MIN [id number] Diagnos is: ICD-10- CM Z03.89 Encntr for obs for oth suspect ed disease s and cond ruled out YANI HUGHES A 12/28 [facility] [place] En[place] [id number] 12/29 [facility] [place] PRO PHONE CALL 21-30 MIN [id number] Diagnos is: ICD-10- CM Z03.89 Encntr for obs for oth suspect ed disease s and cond ruled out YANI HUGHES A 12/29 [facility] [place] En[place] [id number] 12/29 [facility] PRO PHONE CALL 5-10 MIN [id number] Diagnos is: ICD-10- CM Z03.89 Encntr for obs for oth suspect ed disease s and cond ruled out YANI HUGHESICA A 01/28 [facility] [place] Encounter [id number] Diagnos is: ICD-10- CM Z03.89 Encntr for obs for oth suspect ed disease s and cond ruled out YANI HUGHES ONICA A 01/28 [facility] [place] Encounter [id number] 02/17 [facility] PRO PHONE CALL 5-10 MIN [id number] Diagnos is: ICD-10- CM Z03.89 Encntr for obs for oth suspect ed disease s and cond ruled out OSVALDO CORDERO RA 02/22 [facility] [place] Encounter [id number] Diagnos is: ICD-10- CM Z03.89 Encntr for obs for oth suspect ed disease s and cond ruled out YANI HUGHESICA A 02/28 [facility] PRO PHONE CALL 5-10 MIN [id number] Diagnos is: ICD-10- CM Z03.89 Encntr for obs for oth suspect ed disease s and cond ruled out YANI HUGHES ONICA A 03/08 [facility] [place] Encounter [id number] 03/09 [facility] [place] Encounter [id number] 03/09 [facility] PRO PHONE CALL 5-10 MIN [id number] Diagnos is: ICD-10- CM Z03.89 Encntr for obs for oth suspect ed disease s and cond ruled out OSVALDO CORDERO RA M 03/17 [facility] [place] Encounter [id number] 03/23 [facility]EL[facility] OFFICE O/P EST MOD 30 MIN [id number] Diagnos is: ICD-10- CM E83.42 Hypomag nesemia PEYTON BLANCO ECCA A [facility] En[facility] [id number] 03/25 [facility] [place] Encounter [id number] Diagnos is: ICD-10- CM Z03.89 Encntr for obs for oth suspect ed disease s and cond ruled out YANI HUGHES A 03/31 [facility] [place] Encounter [id number] 04/20 [facility] [place] Encounter [id number] 04/21 [facility] [place] Encounter [id number] 04/24 [facility] [place] Encounter [id number] 04/26 [facility] HC PRO PHONE CALL 5-10 MIN [id number] Diagnos is: ICD-10- CM Z03.89 Encntr for obs for oth suspect ed disease s and cond ruled out YANI HUGHES A 04/27 [facility] [place] Encounter [id number] Diagnos is: ICD-10- CM Z03.89 Encntr for obs for oth suspect ed disease s and cond ruled out YANI HUGHES A 04/29 [facility] [place] Encounter [id number] 05/[address] [facility] HC PRO PHONE CALL 5-10 MIN [id number] Diagnos is: ICD-10- CM R10.13 Epigast myles pain MADIHA MCKINLEY 05/17 [place] [facility] Outpatient Encounter [id number] 05/[address] [facility] OFFICE O/P EST LOW 20 MIN [id number] Diagnos is: ICD-10- CM R94.31 Abnorma l electro cardiog danuta [ECG] [EKG] BELLAPEYTON ECCA A 05/18 [facility] HC PRO PHONE CALL 5-10 MIN [id number] Diagnos is: ICD-10- CM Z03.89 Encntr for obs for oth suspect ed disease s and cond ruled out YANI HUGHES ONICA A 05/23 [facility] [place]patient Encounter [id number] Diagnos is: ICD-10- CM Z03.89 Encntr for obs for oth suspect ed disease s and cond ruled out YANI HUGHES ONGEORGINA A 05/30 [facility] [place] Encounter [id number] 06/17 [facility] PH1 ASSMT&MGMT NQHP 5-10 [id number] Diagnos is: ICD-10- CM Z03.89 Encntr for obs for oth suspect ed disease s and cond ruled out YANI HUGHES ONICA A 06/23 [facility] PH1 ASSMT&MGMT NQHP 21-30 [id number] Diagnos is: ICD-10- CM Z03.89 Encntr for obs for oth suspect ed disease s and cond ruled out YANI HUGHES ONICA A 06/23 [place] [address] ASSMT&MGMT NQHP 21-30 [id number] [id number] 5 Diagnos is: ICD-10- CM Z03.89 Encntr for obs for oth suspect ed disease s and cond ruled out YANI HUGHES ONICA A 06/23 [facility] Outpatient Encounter [id number] 06/29 [facility] Outpatient Encounter [id number] Diagnos is: ICD-10- CM Z03.89 Encntr for obs for oth suspect ed disease s and cond ruled out YANI HUGHES ONICA A 06/30 [place] [address] ASSMT&MGMT NQHP 5-10 [id number] 1 Diagnos is: ICD-10- CM Z03.89 Encntr for obs for oth suspect ed disease s and cond ruled out YANI HUGHES ONICA A 07/20 [facility] Outpatient Encounter [id number] Diagnos is: ICD-10- CM Z03.89 Encntr for obs for oth suspect ed disease s and cond ruled out YANI HUGHES ONICA A 07/29 [place] [address] ASSMT&MGMT NQHP 5-10 [id number] [id number] 3 Diagnos is: ICD-10- CM Z03.89 Encntr for obs for oth suspect ed disease s and cond ruled out YANI HUGHES ONICA A 08/18 [facility] Outpatient Encounter [id number] Diagnos is: ICD-10- CM Z03.89 Encntr for obs for oth suspect ed disease s and cond ruled out YANI HUGHES ONICA A 08/29 [facility] ASSMT&MGMT NQHP 5-10 [id number] 4 Diagnos is: ICD-10- CM Z03.89 Encntr for obs for oth suspect ed disease s and cond ruled out YANI HUGHES A 09/02 [facility] Outpatient Encounter [id number] 09/12 [facility] OFFICE O/P EST MOD 30 MIN [id number] Diagnos is: ICD-10- CM R94.31 Abnorma l electro cardiog danuta [ECG] [EKG] PEYTON BLANCO ECCA A 09/12 [place] [facility] PH1 ASSMT&MGMT NQHP 5-10 [id number] Diagnos is: ICD-10- CM Z03.89 Encntr for obs for oth suspect ed disease s and cond ruled out YANI HUGHES A 09/13 [facility] [place] Encounter [id number] 09/13 [facility] Outpatient Encounter [id number] Diagnos is: ICD-10- CM Z03.89 Encntr for obs for oth suspect ed disease s and cond ruled out YANI HUGHES A 09/28 [facility] [place]patient Encounter [id number] 10/05 [facility] [place]patient Encounter [id number] 10/07 [facility] PH1 ASSMT&MGMT NQHP 5-10 [id number] 3 Diagnos is: ICD-10- CM Z03.89 Encntr for obs for oth suspect ed disease s and cond ruled out JEFFREY GALLEGOS 10/10 [facility] Outpatient Encounter [id number] Diagnos is: ICD-10- CM Z03.89 Encntr for obs for oth suspect ed disease s and cond ruled out JEFFREY GALLEGOS 10/21 [facility] PH1 ASSMT&MGMT NQHP 5-10 [id number] Diagnos is: ICD-10- CM Z03.89 Encntr for obs for oth suspect ed disease s and cond ruled out MARQUISE ROMERO 10/31 [facility] [place] Encounter [id number] 2 11/07 [facility] [place]patient Encounter [id number] Diagnos is: ICD-10- CM Z03.89 Encntr for obs for oth suspect ed disease s and cond ruled out CONSUL,ARM ANDLYN 11/23 [facility] [place] [place] ASSMT&MGMT NQHP 5-10 [id number] 3 Diagnos is: ICD-10- CM I10 Essenti al (primar y) hyperte nsion CONSUL,ARM ANDLYN 12/07 [facility] [place] ASSMT&MGMT NQHP 11-20 [id number] 2 Diagnos is: ICD-10- CM I10 Essenti al (primar y) hyperte nsion CONSUL,ARM ANDLYN 12/16 [facility] [place] Encounter [id number] Diagnos is: ICD-10- CM I10 Essenti al (primar y) hyperte nsion CONSUL,ARM ANDLYN 12/27 [facility] [place] ASSMT&MGMT NQHP 11-20 [id number] Diagnos is: ICD-10- CM I10 Essenti al (primar y) hyperte MARQUISE Linares 01/04 [facility] Social History Combined list of available smoking, tobacco, and other social history from Department of Defense and Veterans Affairs facilities. Social History Type Response Date Comment Sourc e Tobacco smoking status NHIS VA-TOBACCO USE FORMER CIGARETTES 09/12/2024 [facility] History of tobacco use VA-TOBACCO NEVER USED OTHER TYPE 09/12/2024 [facility] History of tobacco use VA-TOBACCO QUIT 1 5 YRS OR MORE 09/21/2023 [facility] History of tobacco use VA-TOBACCO FORMER USER 09/19/2022 [facility] History of tobacco use VA-TOBACCO FORMER USER 09/23/2021 [facility] History of tobacco use VA-TOBACCO QUIT 1 5 YRS OR MORE 09/19/2020 [facility] Plan of Care List of future care activities from Department of Veterans Affairs facilities. Additional future care activities may be listed in the Assessment and Plan section. Date/Time Care Activity Care Activity Detail Facili ty 03/08/2025 AMBULATORY - NONE AMBULATORY - NONE [facility]
--- OUTSIDE RECORDS SUMMARY | 2025-01-11 07:55 | XMS_ITS | Clinical Summary ---
Author Organization [facility] Address [address] [place] [address] Care Team Providers Care Community Health Outreach Worker Name Role Phone Eileen Dawn NP Primary Care Provider + [phone] Allergies Active Allergy Reactions Criticality Noted Date Comments Penicillins Unknown 10/07/2024 Medications amLODIPine (Norvasc) 5 mg tablet Take 5 [...] succinate XL (Toprol-XL) 50 mg 24 hr tabletIndicatio ns:Palpitations Take 1 tablet (50 mg) by mouth in the morning. Do not crush or chew. 90 tablet 3 5 11/02/19 26 Active Active Problems Problem Noted Date Diagnosed Date PVC (premature ventricular contraction) 10/10/19 25 Abnormal EKG 10/09/2024 Hypomagnesemia 10/04/2024 GERD (gastroesophageal reflux disease) Hypothyroidism 10/04/2024 Essential hypertension 10/04/2024 Dyslipidemia 10/04/2024 Anxiety 10/04/2024 Bradycardia 10/04/2024 Resolved Problems Problem Noted Date Diagnosed Date Resolved Date CAD (coronary artery disease) 10/04/2024 10/09/2024 Encounters Date Type Department Care Team Description 01/09/2025 Travel 01/09/2025 Orders Only [facility] [address] [place] [address] Ashley Aceves RN PVC (premature ventricular contraction) (Primary Dx) 12/06/2024 11:45 AM EDT Office Visit [address] [place] [address] Jarrett Frederick MD PVC (premature ventricular contraction) (Primary Dx) 12/06/2024 Orders Only [address] [phone] Lou Lyons MA PVC (premature ventricular contraction) (Primary Dx) 11/15/[address] [phone] Lou Lyons MA 11/01/[address] [place] [phone] Lou Lyons MA Palpitations from Last 3 Months Family History Medical [...] at Not on file Legal Sex Male 2:06 PM EDT Gender Identity Not on file Sexual Orientation Not on file Last Filed Vital Signs Vital Sign Reading Time Taken Comments Blood Pressure 131/76 12/06/2024 12:18 PM EDT Pulse 39 12/06/2024 12:18 PM EDT Temperature - - Respiratory Rate - - Oxygen Saturation 96% 12/06/2024 12:18 PM EDT Inhaled Oxygen Concentration - - Weight 73.5 kg (162 lb) 12/06/2024 12:18 PM EDT Height 165.1 cm (5' 5 ) 12/06/2024 12:18 PM EDT Body Mass Index 26.96 12/06/2024 12:18 PM EDT Plan of Treatment Upcoming Encounters Date Type Department Care Team (Late st Contact Info) Description 01/16/2025 8:30 AM EDT Hospital Encounter [facility] [place] [facility] [address] [place] [phone] Jarrett Frederick MD [address] [place] [phone] PVC (premature ventricular contraction) 01/16/2025 10:30 AM EDT - 01/16/2025 1:00 PM EDT Surgery [facility] [place] [facility] [address] [place] [address] Jarrett Frederick MD [address] [place] [phone] Ablation PVC [37024 (CPT )] Health Maintenance Due Date Last Done Comments CT Colonography 1957 Colonoscopy 1957 Colorectal Cancer Screening 1957 FIT-DNA 1957 FIT 1957 FOBT 1957 Medicare Annual Wellness (AWV) 1957 Sigmoidoscopy 1957 Depression Screening 1969 Fall Risk Screening 2022 COVID-19 Vaccine ( season) 2024 03/23/2024, 03/18/2023, 03/05/2022, Additional history exists Influenza Vaccine (#1) 2025 03/23/2024, 2022 Adult Tetanus 04/24/2034 04/24/2024, 09/19/2022 Pneumococcal Vaccine: 50+ Years Completed 09/23/2021 Zoster Vaccines Completed 03/24/2022, 09/23/2021 HIB Vaccines Aged Out No longer eligi [...] patient's age to complete this topic Insurance [employer] MEDICARE ADVANTAGE Care Teams Community Health Outreach Worker Relationship Specialty Start Date End Date Eileen Dawn NP [address] [place] [address] PCP - General Family Medicine 10/07/24
--- OUTSIDE RECORDS SUMMARY | 2025-01-11 07:55 | XMS_ITS | Clinical Summary ---
Author Organization [facility] Address [address] [place] [address] Phone Care Team Providers Care Case Operator Name Role Phone Generic Provider, No Assigned [...] Diabetes Screening 1975 Hepatitis C Screening 1975 PSA Prostate Cancer Screening 2007 RSV High Risk: (Elderly (60+) or Population) (1 - Risk 60-74 years 1-dose series) 2017 COVID-19 Vaccine ( season) 2024 03/23/2024, 03/18/2023, 03/05/2022, Additional history exists Influenza Vaccine (#1) 2025 , 03/18/2023, 03/24/2022 DTaP/Tdap/Td Vaccines (4 - Td or Tdap) [...] topic Insurance MEDICARE PART A AND B [facility] Care Teams Case Operator Relationship Specialty Start Date End Date Generic Provider, [place] [address] PCP - General Oven Operator Automatic 04/24/24
--- OUTSIDE RECORDS SUMMARY | 2025-01-11 07:55 | XMS_ITS | Clinical Summary ---
Author Organization [facility] Address [address] [place] [address], [address] [place] [address] Care Team Providers Care Credit Administration Manager Name Role Phone Unavailable Primary Care Provider Unavailabl e Social History Tobacco Use Types Packs/Day Years Used Date Smoking Tobacco: Never Assessed Sex and Gender Information Value Date Recorded Sex Assigned at Not on file Legal Sex Male 11:55 PM EST Gender Identity Not on file Sexual Orientation Not on file Plan of Treatment Not on file Insurance [place] BC[employer]
--- OUTSIDE RECORDS SUMMARY | 2025-01-11 07:55 | XMS_ITS | Clinical Summary ---
Author Organization [facility] Address [address] [place], [place] [id number] Care Team Providers Care Student Services Vice President Name Role Phone Unavailable Primary Care Provider [...] Diabetes Father HTN [Other] Father Heart Mother [place] in her 70 , I CD Stroke [...] 2007 Shingrix Vaccine (1 of 2) 2007 Advance Directive Discussion 06/01/2024 Influenza Vaccine (#1) 2025 RSV Vaccine (1 - 1-dose 75+ series) 2032
--- OUTSIDE RECORDS SUMMARY | 2025-01-11 07:55 | XMS_ITS | Encounter Summary ---
Author Organization [facility] Address [address] [place] [address] Care Team Providers Care Nutritionist Name Role Phone Eileen Dawn Ondina COMMUNITY RELATIONS MANAGER Primary Care Provider + [phone] Encounter Details Date Type Department Care Team (Latest Contact Info) Description 01/09/2025 Travel Social History Tobacco Use Types Packs/Day Years [...] Description 01/16/2025 8:30 AM EDT Hospital Encounter [facility] [address] [place] [address] Jarrett Frederick MD [address] [place] [address] PVC (premature ventricular contraction) 01/16/2025 10:30 AM EDT - 01/16/2025 1:00 PM EDT Surgery [facility] [address] [place] [address] Jarrett Frederick MD [address] [facility] [place] [address] Ablation PVC [09119 (CPT )] documented as of this encounter Visit Diagnoses Not on filedocumented in this encounter Care Teams Nutritionist Relationship Specialty Start Date End Date Eileen Dawn NP [address] [place] [address] PCP - General Family Medicine 10/07/24 documented as of this encounter
--- OUTSIDE RECORDS SUMMARY | 2025-01-11 07:55 | XMS_ITS | Encounter Summary ---
Author Organization [facility] Address [address] [place] [address] Care Team Providers Care Development Manager Name Role Phone Eileen Dawn Ondina POWERHOUSE MECHANIC Primary Care Provider + [phone] Encounter Details Date Type Department Care Team (Late st Contact Info) Description 01/09/2025 Orders Only [facility] [place] [address] [place] [address] Ashley Aceves RN PVC (premature ventricular contraction) (Primary Dx) Social History Tobacco Use Types Packs/Day Years [...] Description 01/16/2025 8:30 AM EDT Hospital Encounter [facility] [address] [place] [address] Jarrett Frederick MD [address] [facility] [place] [address] PVC (premature ventricular contraction) 01/16/2025 10:30 AM EDT - 01/16/2025 1:00 PM EDT Surgery [facility] [place] [address] [place] [address] Jarrett Frederick MD [address] [facility] [place] [address] Ablation PVC [73743 (CPT )] Scheduled Orders Name Type Priority Associated Diagnoses Orde r Schedule CBC Lab Routine PVC (premature ventricular contraction) Expected: 01/09/2025 (Approximate), Expires: 01/09/2026 Basic metabolic panel Lab Routine PVC (premature ventricular contraction) Expected: 01/09/2025 (Approximate), Expires: 01/09/2026 documented as of this encounter Visit Diagnoses Diagnosis PVC (premature ventricular contraction)- Primary Other premature beats PVC (premature ventricular contraction)- Primary Other premature beats PVC (premature ventricular contraction) Other premature beats documented in this encounter Care Teams Development Manager Relationship Specialty Start Date End Date Eileen Dawn NP [address] [place] [address] PCP - General Family Medicine 10/07/24 documented as of this encounter
[2025-01-11 08:22] LABS: Anion Gap 11.6; Blood Urea Nitrogen 20.0 mg/dL (7.0-18.0); Calcium 8.5 mg/dL (8.5-10.1); Carbon Dioxide 28.9 mmol/L (21.0-32.0); Chloride 105 mmol/L (98-107); Estimated GFR (African America >60 (>=60 mL/min/1.73m^2); Estimated GFR (Non-African Ame >60 (>=60 mL/min/1.73m^2); Glucose 114 mg/dL (74-106); Hematocrit 44.7 % (42.0-54.0); Hemoglobin 15.3 g/dL (14.0-18.0); Immature Granulocytes Abs Auto 0.02 10^3/uL (0.00-0.03); Immature Granulocytes Pct Auto 0.3 % (0.0-0.5); Lymphocytes Absolute Auto 1.9 10^3/uL (1.2-3.8); Mean Corpuscular HGB Conc 34.2 g/dL (29.9-35.2); Mean Corpuscular Hemoglobin 31.3 pg (25.9-34.0); Mean Corpuscular Volume 91.4 fL (80.0-94.0); Platelet Count 208 10^3/uL (150-450); Potassium 4.5 mmol/L (3.5-5.1); Red Blood Count 4.89 10^6/uL (4.70-6.10); Sodium 141 mmol/L (136-145); White Blood Count 6.4 10^3/uL (4.0-11.0)
== END 2025-01-11 07:53 | disposition home or self-care (01) ==
LOC: LAB 07:53
PROVIDERS: Visit Provider Internal Medicine Cardiovascular Disease
DX: I49.3 Ventricular premature depolarization (principal)
CPT/HCPCS: 36415; 80048; 85025

== ENCOUNTER 2025-02-03 15:52 | Outpatient (OUT) | payer OTHER, MEDICARE, SELFPAY ==
[2025-02-03 16:46] LABS: Anion Gap 10.3; Blood Urea Nitrogen 17.0 mg/dL (7.0-18.0); Calcium 8.5 mg/dL (8.5-10.1); Carbon Dioxide 30.4 mmol/L (21.0-32.0); Chloride 103 mmol/L (98-107); Estimated GFR (African America >60 (>=60 mL/min/1.73m^2); Estimated GFR (Non-African Ame >60 (>=60 mL/min/1.73m^2); Glucose 103 mg/dL (74-106); Potassium 4.7 mmol/L (3.5-5.1); Sodium 139 mmol/L (136-145); TSH W/ REFLEX FT4 1.991 uIU/mL (0.358-3.740)
[2025-02-03 17:18] LABS: Hematocrit 45.8 % (42.0-54.0); Hemoglobin 15.7 g/dL (14.0-18.0); Immature Granulocytes Abs Auto 0.03 10^3/uL (0.00-0.03); Immature Granulocytes Pct Auto 0.4 % (0.0-0.5); Lymphocytes Absolute Auto 1.5 10^3/uL (1.2-3.8); Mean Corpuscular HGB Conc 34.3 g/dL (29.9-35.2); Mean Corpuscular Hemoglobin 31.5 pg (25.9-34.0); Mean Corpuscular Volume 92.0 fL (80.0-94.0); Platelet Count 274 10^3/uL (150-450); Red Blood Count 4.98 10^6/uL (4.70-6.10); White Blood Count 7.1 10^3/uL (4.0-11.0)
== END 2025-02-03 15:53 | disposition home or self-care (01) ==
DX: I49.3 Ventricular premature depolarization (principal); Z98.890 Other specified postprocedural states; Z86.79 Personal history of other diseases of the circulatory system; E03.9 Hypothyroidism, unspecified; I25.118 Atherosclerotic heart disease of native coronary artery with other forms of angina pectoris
CPT/HCPCS: 36415; 80048; 84443; 85025